=== PATIENT | female | born 1945 | race Caucasian/White ===

== ENCOUNTER 2016-12-07 09:05 | Outpatient (CLI) ==
--- NOTE | 2016-12-07 10:16 | DI ---
EXAM: Three views of the left wrist. History: Left wrist pain. Findings: No acute fracture or dislocation. Mild narrowing of the first carpal metacarpal joint an d scaphoid trapezium articulation. No abnormal calcifications or radiopaque foreign bodies. Mild o steopenia. Impression: 1. No acute osseous abnormality. 2. Mild arthritis. 3. Osteopenia.
--- NOTE | 2016-12-07 10:17 | DI ---
EXAM: Two views of the left hip. History: Left hip pain and trauma. Findings: No acute fracture or dislocation. Osteopenia. Left hip joint space is preserved. Impression: No acute osseous abnormality.
--- NOTE | 2016-12-07 10:18 | DI ---
Exam: Three x-rays of the right wrist. Comparison: Left wrist x-rays performed on the same day. Reason for exam: Bilateral wrist pain. FINDINGS: No acute fracture or malalignment. There is narrowing of the scaphoid triquetral joint s pace with sclerosis. No unexplained calcific soft tissue densities or radiopaque retained foreign b odies. The scaphoid appears intact. Impression: 1. No acute fracture or dislocation in the right wrist. 2. Moderate degenerative disease with sclerotic change and narrowing of the scaphoid trapezial join t space.
--- NOTE | 2016-12-07 10:18 | DI ---
EXAM: Five views of the lumbar spine. History: Lower back pain and trauma. Comparison: Lumbar spine radiograph 11/22/2014 Findings: Osteopenia. Cholecystectomy clips. Scattered colonic stool. No acute fracture or sublu xation. Mild to moderate disc space narrowing at L1-L2 and L5-S1. Mild disc space narrowing seen e lsewhere. Small anterior osteophytes. Mild to moderate facet hypertrophy within the lower lumbar s pine. Impression: No acute osseous abnormality. Degenerative changes. Osteopenia.
== END 2016-12-07 09:06 | disposition home or self-care (01) ==
LOC: RAD 09:05
PROVIDERS: ATTEND Family Medicine
DX: M54.5 Low back pain (principal); M25.552 Pain in left hip; M25.531 Pain in right wrist; M25.532 Pain in left wrist; W19.XXXA Unspecified fall, initial encounter

== ENCOUNTER 2017-08-08 10:31 | Outpatient (CLI) ==
--- NOTE | 2017-08-08 12:24 | DI ---
Exam: Cervical spine five views History: Neck pain FINDINGS: Cervical spine shows degenerative anterior listhesis of C4 measuring about 2 mm. Normal a lignment otherwise. Vertebral body height is maintained. Disc space narrowing at C5-6. Facet arthr opathy changes bilaterally generally mild. No suspicious bony lesions are seen. Normal prevertebral soft tissues. Impression: 1. Focal bone on bone disc space narrowing at C5-6. Generally mild endplate and facet degenerative changes otherwise.
== END 2017-08-08 10:32 | disposition home or self-care (01) ==
LOC: RAD 10:31
PROVIDERS: ATTEND Family Medicine
DX: M54.2 Cervicalgia (principal)

== ENCOUNTER 2018-09-16 09:06 | Emergency (ER) ==
[2018-09-16 09:16] VITALS: BP 163/69; TEMP 97.8; BMI 27.8
--- NOTE | 2018-09-16 09:46 | CT ---
Exam: CT of the abdomen and pelvis without contrast History: Lower abdomen pain FINDINGS: The lung bases are clear. No significant liver abnormality. The adrenals, pancreas and s pleen are unremarkable. The stomach and hiatus are unremarkable.Prior cholecystectomy. The appendix is not seen. Mild prominence of the right ureter with periureteral stranding. Punctate right dista l ureteral calculus versus adjacent vascular calcification. Normal left kidney and collecting system . Bowel loops demonstrate normal caliber. No inflamatory change seen in the mesentery or retroperit oneum. Atherosclerotic calcification of the aorta without aneurysm. Normal urinary bladder. Prior hysterectomy. Prominent right distal ureter with questionable distal ureteral calculus. Normal pelvic bowel loops. No acute findings of the skeleton. Impression: 1. Mild right hydroureter with periureteral stranding. Questionable, sub 2 mm, right distal uretera l calculus versus adjacent vascular calcification. 2. No acute findings of the abdomen or pelvis otherwise.
[2018-09-16] MEDS ORDERED: LIDOCAINE HCL 1% SDV IM STA (10:00)
[2018-09-16] MEDS ORDERED: ROCEPHIN IM STA (10:00)
--- NOTE | 2018-09-16 10:05 | ED.PDOC ---
General ED Provider: Dr. MIGUEL ANGEL MARTINEZ Chief Complaint: Urinary Problem Stated Complaint: urinary sign and symptoms onset last night lower abdominal pain without N/V/D . Time Seen by Physician: 09:11 (SEEN WITH GUILHERME AT ALL TIMES ) Mode of Arrival: Walk-In Information Source: Patient Exam Limitations: No limitations Primary Care Provider: LUCILLE SCHMITT Nursing and Triage Documentation Reviewed and Agree: Yes Does patient meet sepsis criteria?: No System Inflammatory Response Syndrome: Not Applicable Sepsis Protocol: For patient's 13 years and over: Temp is 96.8 and below OR 101 and greater Pulse >90 BPM Resp >20/minute Acutely Altered Mental Status Are patient's symptoms suggestive of a new infection, such as: -Pneumonia -Skin, Soft Tissue -Endocarditis -UTI -Bone, Joint Infection -Implantable Device -Acute Abdominal Infection -Wound Infection -Meningitis -Blood Stream Catheter Infection -Unknown Complaint Exam - UTI Female Complaint/Exam Patient Complains of: Reports: Painful urination (MAINLY PRESSURE NO PAIN NEGATIVE BLOD) Onset/Duration: LAST NIGHT Symptoms Are: Still present Timing: Constant Initial Severity: Moderate Current Severity: Mild Location of Pain: Reports: Right (LOWER ), Left, Suprapubic Associated Signs and Symptoms: Denies: Fever, Chills, Flank pain, Dyspareunia, Vaginal discharge Patient Rh Status: Unknown Related History: Reports: Similar episode (UTI NO HISTORY OF RENAL FAILURE OR STONES ) Related Surgical History: Reports: None CVA Tenderness: No Suprapubic Tenderness: Yes Differential Diagnoses: Ureteral Calculus, Other (UTI) Review of Systems - Review Of Systems Constitutional: Reports: No symptoms Eyes: Reports: No symptoms Ears, Nose, Mouth, Throat: Reports: No symptoms Respiratory: Reports: No symptoms Cardiac: Reports: No symptoms GI: Reports: Abdominal pain : Reports: Dysuria Musculoskeletal: Reports: No symptoms Skin: Reports: No symptoms Neurological: Reports: No symptoms Endocrine: Reports: No symptoms Hematologic/Lymphatic: Reports: No symptoms All Other Systems: Reviewed and Negative Past Medical History - Past Medical History Previously Healthy: Yes Endocrine: Reports: Hypothyroid Cardiovascular: Reports: Hypertension Respiratory: Reports: None Hematological: Reports: None Gastrointestinal: Reports: None Genitourinary: Reports: None Neuro/Psych: Reports: None Musculoskeletal: Reports: None Cancer: Reports: None Last Menstrual Period: N/A - Surgical History General Surgical History: Reports: None - Family History Family History: Reports: None - Social History Smoking Status: Never smoker Hx Substance Use: No Alcohol Screening: None - Immunizations Tetanus Shot up to Date: No Physical Exam - Physical Exam Appearance: Well-appearing, No pain distress, Well-nourished Eyes: JENN, EOMI, Conjunctiva clear ENT: Ears normal, Nose normal, Oropharynx normal Respiratory: Airway patent, Breath sounds clear, Breath sounds equal, Respirations nonlabored Cardiovascular: RRR, Pulses normal, No rub, No murmur GI/: Soft, Nontender, No masses, Bowel sounds normal, No Organomegaly Musculoskeletal: Normal strength, ROM intact, No edema, No calf tenderness Skin: Warm, Dry, Normal color Neurological: Sensation intact, Motor intact, Reflexes intact, Cranial nerves intact, Alert, Oriented Psychiatric: Affect appropriate, Mood appropriate Interpretation - Radiology Interpretation Radiology Interpretation By: Radiologist Radiology Results: Positive (PREURETHRAL STRANDING) Critical Care Note - Critical Care Note Total Time (mins): 0 Course - Course Hematology/Chemistry: 09/16/18 09:35 09/16/18 09:35 Orders, Labs, Meds: Lab Review 09/16/18 09/16/18 09/16/18 09:32 09:35 09:35 WBC 8.47 RBC 3.84 L Hgb 11.6 L Hct 35.7 L MCV 93.0 MCH 30.2 MCHC 32.5 RDW Coeff of Bucky 14.0 Plt Count 183 Immature Gran % (Auto) 0.4 Neut % (Auto) 76.7 Lymph % (Auto) 14.6 [place] % (Auto) 7.1 Eos % (Auto) 0.7 Baso % (Auto) 0.5 Immature Gran # (Auto) 0.0 Neut # (Auto) 6.5 Lymph # (Auto) 1.2 [place] # (Auto) 0.6 Eos # (Auto) 0.1 Baso # (Auto) 0.0 Sodium 136.6 Potassium 4.15 Chloride 101.2 Carbon Dioxide 27.6 Anion Gap 11.95 BUN 19.0 H Creatinine 1.01 Estimated GFR (MDRD) 53.00 BUN/Creatinine Ratio 18.81 Glucose 108.5 H Calcium 9.20 Total Bilirubin 0.63 AST 27.0 ALT 20.6 Alkaline Phosphatase 81.7 Total Protein 7.24 Albumin 4.42 Globulin 2.82 Albumin/Globulin Ratio 1.56 Urine Color Light Urine Clarity Cloudy Urine pH 6.0 Ur Specific [place] 1.015 Urine Protein 3+ Urine Glucose (UA) Negative Urine Ketones Negative Urine Blood 2+ Urine Nitrite Negative Urine Bilirubin Negative Urine Urobilinogen 0.2 Ur Leukocyte Esterase 1+ Urine Microscopic RBC 5-10 Urine Microscopic WBC Tntc Ur Squamous Epith Cells 0-2 Urine Bacteria 1+ Orders Category Date Time Status CBC W/ AUTO DIFF Stat LAB 09/16/18 09:13 Ordered COMPREHENSIVE METABOLIC PANEL Stat LAB 09/16/18 09:13 Ordered URINALYSIS C & S IF INDICATED Stat LAB 09/16/18 09:13 Uncollected URINE CULTURE Stat LAB 09/16/18 09:32 Received Ceftriaxone Sodium [Rocephin] MEDS 09/16/18 10:00 Stat 1 gm IM ONCE STA Lidocaine HCl/Pf [Lidocaine HCl 1% Sdv] MEDS 09/16/18 10:00 Stat 2.1 ml IM ONCE STA CT ABDOMEN/PELVIS WO CONTRAST Stat RADS 09/16/18 09:13 Ordered Medications Generic Name Dose Route Start Last Admin Trade Name Jossie PRN Reason Stop Dose Admin Ceftriaxone Sodium 1 gm 09/16/18 10:00 Rocephin IM 09/16/18 10:01 ONCE STA Lidocaine HCl 2.1 ml 09/16/18 10:00 Lidocaine Hcl 1% Sdv IM 09/16/18 10:01 ONCE STA Vital Signs: Temp Pulse Resp BP Pulse Ox 09/16/18 09:06 97.8 F 100 H 18 163/69 H 97 Departure - Departure Time of Disposition: 10:09 Disposition: HOME SELF-CARE Discharge Problem: Urinary tract infectious disease, Urinary symptoms Instructions: Urinary Tract Infection in Women (ED) Condition: Good Pt referred to PMD for follow-up: Yes IPMP verified?: No Additional Instructions: Please call your Family Physician as soon as possible to schedule a follow-up appointment. YOU HAVE A URINARY TRACT INFECTION, IF YOU HAVE FEVER GETTING SICKER, VOMITING CANT URINATE BLOODY URINE YOU MUST GET IN TOUCH WITH YOU M.D. OR RETURN TO THE E.R. YOU HAVE BEEN GIVEN A STRONG ANTIBIOTIC INJECTION START YOUR MEDS IN AM . FOR NEXT 4 DAYS AND SEE YOUR MD REGARDLESS DURING THE NEXT WEEK Allergies/Adverse Reactions: Allergies No Known Allergies Allergy (Unverified 09/16/18 09:16) Home Medications: Ambulatory Orders Losartan/Hydrochlorothiazide [Losartan-Hctz 100-25 Mg Tab] 0.5 tab PO DAILY Levothyroxine Sodium [Synthroid] 50 mcg PO DAILY 10/13/15 Disposition Discussed With: Patient
== END 2018-09-16 10:24 | disposition home or self-care (01) ==
LOC: ED 09:06
DX: N39.0 Urinary tract infection, site not specified (principal); N20.0 Calculus of kidney; E03.9 Hypothyroidism, unspecified; I10 Essential (primary) hypertension; D64.9 Anemia, unspecified
CPT/HCPCS: 36415; 80053; 81001; 85025; 87086; 87186; 96372; 99283

== ENCOUNTER 2023-07-09 04:10 | Inpatient (IN) ==
--- NOTE | 2023-07-09 05:35 | ED.PDOC ---
General <SHIVA DSOUZA, DO - Last Filed: 07/18/23 17:57> ED Provider: Dr. SHIVA DSOUZA DO Chief Complaint: Hip Pain/Injury Stated Complaint: Patient is a 78 yo F here for R hip pain after fall this am in the bathroom Patient arrives afebrile and vitally stable by ems She was able to ambulate after fall She has chronic R hip pain and follows with orthopedist Dr. Chacon Patient reports she tripped, hit her head, she denies LOC or being on anticoagulant medicine Patient stable She declines analgesics at this time Time Seen by Provider: 07/09/23 04:40 Information Source: Patient Primary Care Provider: LUCILLE SCHMITT What is Opioid Naive?: *Opioid Naive implies the patient is not already taking opioids or not chronically receiving opioids on a daily basis. *PRN dosing is not "usually" associated with tolerance. *Patients are at higher risk of over-sedation and aspiration. What is Opioid Tolerant?: *Opioid Tolerance implies less than the expected response to an opioid. *Acquired tolerance is defined by the patient taking 60mg of oral morphine daily (or equianalgesic dose of another opioid) for 1 week or more. *Often associated with chronic pain. *May take more than usual dose to achieve desired pain control. <WM GARCIA, - Last Filed: 07/09/23 08:15> Nursing and Triage Documentation Reviewed and Agree: Yes Review of Systems <SHIVA DSOUZA, - Last Filed: 07/18/23 17:57> Review Of Systems Constitutional: Denies Chills or Fever Eyes: Denies Blindness or Drainage Ears, Nose, Mouth, Throat: Denies Ear pain or Nose pain Respiratory: Denies Cough or Wheezing Cardiac: Denies Chest pain or Palpitations GI: Denies Abdominal pain or Constipated : Denies Burning or Dysuria Musculoskeletal: Reports Joint pain (R hip pain); Denies Back pain Skin: Reports No symptoms Neurological: Reports No symptoms Endocrine: Reports No symptoms Hematologic/Lymphatic: Reports No symptoms All Other Systems: Reviewed and Negative PFS <SHIVA DSOUZA DO - Last Filed: 07/18/23 17:57> Medical History (Updated 07/13/23 @ 13:48 by ARNOL OLIVEROS RN) Polio Had as a child. Right foot/leg affected. A80.9 - Acute poliomyelitis, unspecified (ICD-10) Hypertension for years I10 - Essential (primary) hypertension (ICD-10) Hypothyroidism about a year or two E03.9 - Hypothyroidism, unspecified (ICD-10) Family History Other No known health problems Social History Smoking and tobacco status: Never smoker Surgical History History of cataract surgery Z98.49 - Cataract extraction status, unspecified eye (ICD-10) Status post tonsillectomy 1947 Z90.89 - Acquired absence of other organs (ICD-10) Status post hysterectomy 2010 Z90.710 - Acquired absence of both cervix and uterus (ICD-10) Status post appendectomy 1961 Z90.49 - Acquired absence of other specified parts of digestive tract (ICD- 10) Female Reproductive History Menstrual Hx Hysterectomy: Yes Hx Tubal Ligation: No Physical Exam <SHIVA DSOUZA DO - Last Filed: 07/18/23 17:57> Physical Exam Appearance: Reports Well-appearing, Well-nourished and Obese Ill-appearing: Not Applicable Pain Distress: Mild Eyes: Reports JENN and EOMI ENT: Reports Ears normal and Nose normal Neck: Supple Respiratory: Reports Airway patent and Breath sounds clear Cardiovascular: Reports RRR and Pulses normal GI/: Reports Soft and Nontender Musculoskeletal: Reports Normal strength, ROM intact and Other (R hip ttp, no skin changes, arom prom intact, no gross shortening or rotation, NVI BL LE) Skin: Reports Warm and Dry Neurological: Reports Sensation intact and Motor intact Psychiatric: Reports Affect appropriate and Mood appropriate Course <SHIVA DSOUZA DO - Last Filed: 07/18/23 17:57> Course 07/13/23 05:26 07/13/23 05:26 Orders, Labs, Meds: Lab Review 07/09/23 07/10/23 07/11/23 08:16 05:24 05:13 WBC 8.59 8.56 RBC 3.69 L 3.53 L Hgb 10.9 L 10.4 L Hct 34.9 L 32.6 L MCV 94.6 92.4 MCH 29.5 29.5 MCHC 31.2 L 31.9 RDW Coeff of Bucky 15.0 H 14.5 Plt Count 131 L 123 L Immature Gran % (Auto) 0.6 0.6 Neut % (Auto) 78.1 H 81.0 H Lymph % (Auto) 12.[address] [place] % (Auto) 6.5 8.1 Eos % (Auto) 2.1 1.3 Baso % (Auto) 0.5 0.5 Neut # (Auto) 6.7 6.9 Lymph # (Auto) 1.[address] # (Auto) 0.6 0.7 Eos # (Auto) 0.2 0.1 Baso # (Auto) 0.0 0.0 Immature Gran # (Auto) 0.1 0.1 Sodium 130.2 L 130.8 L Potassium 3.63 4.02 Chloride 97.2 L 98.4 Carbon Dioxide 27.7 28.5 Anion Gap 8.93 7.92 BUN 20.3 H 17.5 H Creatinine 0.92 0.82 Estimated GFR (MDRD) 59.00 67.00 BUN/Creatinine Ratio 22.06 21.34 Glucose 103.2 115.8 H Calcium 8.22 L 8.17 L Total Bilirubin 1.13 0.71 AST 29.8 23.9 ALT 23.8 18.3 Alkaline Phosphatase 69.6 69.9 Total Protein 6.42 6.12 L Albumin 3.67 3.47 L Globulin 2.75 2.65 Albumin/Globulin Ratio 1.33 1.30 SARS CoV-2 RNA Rapid AMADO Negative Orders Category Date Time Status ADMIT OBSERVATION [PLACE PATIENT OBSERVATION] .TO ADMISSION 07/09/23 08:14 Completed MEDSURG (MONITORED BED) ADMIT PATIENT INPATIENT .TO MEDSURG (MONITORED BED) ADMISSION 07/10/23 09:53 Completed ACTIVITY .Up With Assistance CARE 07/09/23 08:31 Completed INTAKE & OUTPUT Q8HR CARE 07/09/23 08:31 Completed TELEMETRY MONITORING TELE CARE 07/09/23 08:14 Completed TELEMETRY MONITORING TELE CARE 07/10/23 09:53 Completed VITAL SIGNS Q4HR CARE 07/09/23 08:31 Completed CARDIAC DIET DIETARY 07/09/23 Breakfast Completed CBC W/ AUTO DIFF DAILY@0600 LAB 07/10/23 05:24 Completed CBC W/ AUTO DIFF DAILY@0600 LAB 07/11/23 05:13 Completed COMPREHENSIVE METABOLIC PANEL DAILY@0600 LAB 07/10/23 05:24 Completed COMPREHENSIVE METABOLIC PANEL DAILY@0600 LAB 07/11/23 05:13 Completed COVID [SARS COV-2 RNA RAPID AMADO] Stat LAB 07/09/23 08:16 Completed Acetaminophen [Tylenol] Meds 07/09/23 08:31 Discontinued 650 mg PO Q4H PRN Enoxaparin Sodium [Lovenox] Meds 07/09/23 09:00 Discontinued 40 mg SUBCUT DAILY Fentanyl Citrate/Pf [Sublimaze] Meds 07/09/23 07:54 Discontinued 50 mcg IVP ONCE ONE Furosemide [Lasix Tab] Meds 07/09/23 13:00 Discontinued 20 mg PO QDAC2 Hydrocodone Bit/Acetaminophen [[place] 5-325] Meds 07/09/23 05:59 Discontinued 1 tab PO ONCE ONE Hydrocodone Bit/Acetaminophen [[place] 7.5-325] Meds 07/09/23 08:31 Discontinued 1 tab PO Q6HR PRN Levothyroxine Sodium [Synthroid] Meds 07/09/23 13:00 Discontinued 50 mcg PO DAILY@0630 Morphine Sulfate [Morphine 2 mg/ml Syringe] Meds 07/09/23 08:31 Discontinued 2 mg IVP Q6H PRN Valsartan [Diovan] Meds 07/09/23 13:00 Discontinued 160 mg PO DAILY RESUSCITATION STATUS Routine OTHERS 07/09/23 09:[address] ABDOMEN/PELVIS WO CONTRAST Stat RADS 07/09/23 04:[address] HEAD W/O CONTRAST Stat RADS 07/09/23 04:52 Completed OT CONSULTATION Routine THERAPIES 07/09/23 16:25 Completed OT CONSULTATION Routine THERAPIES 07/09/23 16:25 Completed OT EVALUATION Routine THERAPIES 07/09/23 08:31 Completed PT CONSULT Routine THERAPIES 07/09/23 16:21 Completed PT CONSULT Routine THERAPIES 07/09/23 16:22 Completed PT INPATIENT EVALUATION Routine THERAPIES 07/09/23 16:22 Completed Medications Discontinued Medications Generic Name Dose Route Start Last Admin Trade Name Freq PRN Reason Stop Dose Admin Acetaminophen 650 mg 07/09/23 08:31 07/11/23 10:29 Acetaminophen 325 Mg Tablet PO 650 mg Q4H PRN Administration Mild Pain Hydrocodone Bitart/Acetaminophen 1 tab 07/09/23 05:59 07/09/23 06:07 Hydrocodone Bit/Acetaminophen 5/325 Mg Tablet PO 07/09/23 06:00 1 tab ONCE ONE Administration Hydrocodone Bitart/Acetaminophen 1 tab 07/09/23 08:31 07/12/23 20:12 Hydrocodone Bit/Acetaminophen 7.5/325 Mg Tablet PO 1 tab Q6HR PRN Administration MODERATE PAIN Enoxaparin Sodium 40 mg 07/09/23 09:00 07/13/23 09:20 Enoxaparin Sodium 40 Mg/0.4 Ml Syr SUBCUT 40 mg DAILY RAJANI Administration Fentanyl Citrate 50 mcg 07/09/23 07:54 07/09/23 09:12 Fentanyl 50 Mcg/Ml Sdv IVP 07/09/23 07:55 Not Given ONCE ONE Furosemide 20 mg 07/09/23 13:00 07/13/23 05:29 Furosemide 20 Mg Tablet PO 20 mg QDAC2 RAJANI Administration Sodium Chloride 1,000 mls @ 100 mls/hr 07/11/23 09:30 07/12/23 06:03 Sodium Chloride IV 100 mls/hr .Q10H RJAANI Administration Levothyroxine Sodium 50 mcg 07/09/23 13:00 07/13/23 05:29 Levothyroxine Sodium 50 Mcg Tablet PO 50 mcg DAILY@0630 RAJANI Administration Morphine Sulfate 2 mg 07/09/23 08:31 07/09/23 18:06 Morphine Sulfate 2 Mg/Ml Syringe IVP 2 mg Q6H PRN Administration MODERATE PAIN Sodium Chloride 1 gm 07/11/23 15:00 07/13/23 09:19 Sodium Chloride 1 Gm Tablet PO 1 gm TID RAJANI Administration Valsartan 160 mg 07/09/23 13:00 07/13/23 09:20 Valsartan 160 Mg Tablet PO 160 mg DAILY RAJANI Administration Vital Signs: Temp Pulse Resp BP Pulse Ox O2 Del Method 07/11/23 05:18 99 F 105 H 15 153/72 H 91 L Room Air 07/11/23 02:00 99.7 F 112 H 16 154/79 H 91 L Room Air 07/11/23 01:00 Room Air 07/11/23 00:00 Room Air 07/10/23 23:00 Room Air 07/10/23 22:00 Room Air 07/10/23 21:07 98.8 F 87 16 144/64 H 94 L Room Air 07/10/23 21:00 Room Air 07/10/23 20:00 Room Air 07/10/23 20:00 Room Air 07/10/23 19:00 Room Air 07/10/23 17:20 98.7 F 92 18 150/71 H 93 L Room Air 07/10/23 17:12 Room Air 07/10/23 16:43 Room Air 07/10/23 16:00 Room Air 07/10/23 14:58 Room Air 07/10/23 13:55 Room Air 07/10/23 13:22 98.2 F 85 18 115/58 L 95 Room Air 07/10/23 12:50 Room Air 07/10/23 12:00 Room Air 07/10/23 11:00 Room Air 07/10/23 09:51 Room Air 07/10/23 09:50 97.6 F 84 18 112/53 L 90 L Room Air 07/10/23 08:32 Room Air 07/10/23 08:00 Room Air 07/10/23 07:25 Room Air 07/10/23 07:00 Room Air 07/10/23 07:00 Room Air 07/10/23 06:00 Room Air 07/10/23 05:21 99.7 F 88 18 137/61 90 L Room Air 07/10/23 05:00 Room Air 07/10/23 04:00 Room Air 07/10/23 03:00 Room Air 07/10/23 02:00 Room Air 07/10/23 01:00 Room Air 07/10/23 00:00 Room Air 07/09/23 23:00 Room Air 07/09/23 22:00 Room Air 07/09/23 21:28 98.5 F 89 18 127/55 L 95 Room Air 07/09/23 21:00 Room Air 07/09/23 20:00 Room Air 07/09/23 19:59 Room Air 07/09/23 19:00 Room Air 07/09/23 18:00 100 F 91 14 129/66 95 Room Air 07/09/23 17:44 Room Air 07/09/23 17:00 Room Air 07/09/23 16:00 Room Air 07/09/23 15:00 Room Air 07/09/23 14:00 99.6 F 94 17 157/67 H 95 Room Air 07/09/23 14:00 Room Air 07/09/23 13:00 Room Air 07/09/23 12:00 Room Air 07/09/23 11:00 Room Air 07/09/23 10:00 Room Air 07/09/23 09:18 Room Air 07/09/23 09:18 97.7 F 89 16 96 Room Air 07/09/23 08:03 88 16 122/48 L 95 07/09/23 04:11 98.2 F 84 18 159/66 H 94 L <WM GARCIA, DO - Last Filed: 07/09/23 08:15> Course Orders, Labs, Meds: Lab Review 07/09/23 07/10/23 07/11/23 08:16 05:24 05:13 WBC 8.59 8.56 RBC 3.69 L 3.53 L Hgb 10.9 L 10.4 L Hct 34.9 L 32.6 L MCV 94.6 92.4 MCH 29.5 29.5 MCHC 31.2 L 31.9 RDW Coeff of Bucky 15.0 H 14.5 Plt Count 131 L 123 L Immature Gran % (Auto) 0.6 0.6 Neut % (Auto) 78.1 H 81.0 H Lymph % (Auto) 12.[address] [place] % (Auto) 6.5 8.1 Eos % (Auto) 2.1 1.3 Baso % (Auto) 0.5 0.5 Neut # (Auto) 6.7 6.9 Lymph # (Auto) 1.[address] # (Auto) 0.6 0.7 Eos # (Auto) 0.2 0.1 Baso # (Auto) 0.0 0.0 Immature Gran # (Auto) 0.1 0.1 Sodium 130.2 L 130.8 L Potassium 3.63 4.02 Chloride 97.2 L 98.4 Carbon Dioxide 27.7 28.5 Anion Gap 8.93 7.92 BUN 20.3 H 17.5 H Creatinine 0.92 0.82 Estimated GFR (MDRD) 59.00 67.00 BUN/Creatinine Ratio 22.06 21.34 Glucose 103.2 115.8 H Calcium 8.22 L 8.17 L Total Bilirubin 1.13 0.71 AST 29.8 23.9 ALT 23.8 18.3 Alkaline Phosphatase 69.6 69.9 Total Protein 6.42 6.12 L Albumin 3.67 3.47 L Globulin 2.75 2.65 Albumin/Globulin Ratio 1.33 1.30 SARS CoV-2 RNA Rapid AMADO Negative Orders Category Date Time Status ADMIT OBSERVATION [PLACE PATIENT OBSERVATION] .TO ADMISSION 07/09/23 08:14 Completed MEDSURG (MONITORED BED) ADMIT PATIENT INPATIENT .TO MEDSURG (MONITORED BED) ADMISSION 07/10/23 09:53 Completed ACTIVITY .Up With Assistance CARE 07/09/23 08:31 Completed INTAKE & OUTPUT Q8HR CARE 07/09/23 08:31 Completed TELEMETRY MONITORING TELE CARE 07/09/23 08:14 Completed TELEMETRY MONITORING TELE CARE 07/10/23 09:53 Completed VITAL SIGNS Q4HR CARE 07/09/23 08:31 Completed CARDIAC DIET DIETARY 07/09/23 Breakfast Completed CBC W/ AUTO DIFF DAILY@0600 LAB 07/10/23 05:24 Completed CBC W/ AUTO DIFF DAILY@0600 LAB 07/11/23 05:13 Completed COMPREHENSIVE METABOLIC PANEL DAILY@0600 LAB 07/10/23 05:24 Completed COMPREHENSIVE METABOLIC PANEL DAILY@0600 LAB 07/11/23 05:13 Completed COVID [SARS COV-2 RNA RAPID AMADO] Stat LAB 07/09/23 08:16 Completed Acetaminophen [Tylenol] Meds 07/09/23 08:31 Discontinued 650 mg PO Q4H PRN Enoxaparin Sodium [Lovenox] Meds 07/09/23 09:00 Discontinued 40 mg SUBCUT DAILY Fentanyl Citrate/Pf [Sublimaze] Meds 07/09/23 07:54 Discontinued 50 mcg IVP ONCE ONE Furosemide [Lasix Tab] Meds 07/09/23 13:00 Discontinued 20 mg PO QDAC2 Hydrocodone Bit/Acetaminophen [[place] 5-325] Meds 07/09/23 05:59 Discontinued 1 tab PO ONCE ONE Hydrocodone Bit/Acetaminophen [[place] 7.5-325] Meds 07/09/23 08:31 Discontinued 1 tab PO Q6HR PRN Levothyroxine Sodium [Synthroid] Meds 07/09/23 13:00 Discontinued 50 mcg PO DAILY@0630 Morphine Sulfate [Morphine 2 mg/ml Syringe] Meds 07/09/23 08:31 Discontinued 2 mg IVP Q6H PRN Valsartan [Diovan] Meds 07/09/23 13:00 Discontinued 160 mg PO DAILY RESUSCITATION STATUS Routine OTHERS 07/09/23 09:[address] ABDOMEN/PELVIS WO CONTRAST Stat RADS 07/09/23 04:[address] HEAD W/O CONTRAST Stat RADS 07/09/23 04:52 Completed OT CONSULTATION Routine THERAPIES 07/09/23 16:25 Completed OT CONSULTATION Routine THERAPIES 07/09/23 16:25 Completed OT EVALUATION Routine THERAPIES 07/09/23 08:31 Completed PT CONSULT Routine THERAPIES 07/09/23 16:21 Completed PT CONSULT Routine THERAPIES 07/09/23 16:22 Completed PT INPATIENT EVALUATION Routine THERAPIES 07/09/23 16:22 Completed Medications Discontinued Medications Generic Name Dose Route Start Last Admin Trade Name Saloq PRN Reason Stop Dose Admin Acetaminophen 650 mg 07/09/23 08:31 07/11/23 10:29 Acetaminophen 325 Mg Tablet PO 650 mg Q4H PRN Administration Mild Pain Hydrocodone Bitart/Acetaminophen 1 tab 07/09/23 05:59 07/09/23 06:07 Hydrocodone Bit/Acetaminophen 5/325 Mg Tablet PO 07/09/23 06:00 1 tab ONCE ONE Administration Hydrocodone Bitart/Acetaminophen 1 tab 07/09/23 08:31 07/12/23 20:12 Hydrocodone Bit/Acetaminophen 7.5/325 Mg Tablet PO 1 tab Q6HR PRN Administration MODERATE PAIN Enoxaparin Sodium 40 mg 07/09/23 09:00 07/13/23 09:20 Enoxaparin Sodium 40 Mg/0.4 Ml Syr SUBCUT 40 mg DAILY RAJANI Administration Fentanyl Citrate 50 mcg 07/09/23 07:54 07/09/23 09:12 Fentanyl 50 Mcg/Ml Sdv IVP 07/09/23 07:55 Not Given ONCE ONE Furosemide 20 mg 07/09/23 13:00 07/13/23 05:29 Furosemide 20 Mg Tablet PO 20 mg QDAC2 RAJANI Administration Sodium Chloride 1,000 mls @ 100 mls/hr 07/11/23 09:30 07/12/23 06:03 Sodium Chloride IV 100 mls/hr .Q10H RAJANI Administration Levothyroxine Sodium 50 mcg 07/09/23 13:00 07/13/23 05:29 Levothyroxine Sodium 50 Mcg Tablet PO 50 mcg DAILY@0630 RAJANI Administration Morphine Sulfate 2 mg 07/09/23 08:31 07/09/23 18:06 Morphine Sulfate 2 Mg/Ml Syringe IVP 2 mg Q6H PRN Administration MODERATE PAIN Sodium Chloride 1 gm 07/11/23 15:00 07/13/23 09:19 Sodium Chloride 1 Gm Tablet PO 1 gm TID RAJANI Administration Valsartan 160 mg 07/09/23 13:00 07/13/23 09:20 Valsartan 160 Mg Tablet PO 160 mg DAILY RAJANI Administration Vital Signs: Temp Pulse Resp BP Pulse Ox O2 Del Method 07/11/23 05:18 99 F 105 H 15 153/72 H 91 L Room Air 07/11/23 02:00 99.7 F 112 H 16 154/79 H 91 L Room Air 07/11/23 01:00 Room Air 07/11/23 00:00 Room Air 07/10/23 23:00 Room Air 07/10/23 22:00 Room Air 07/10/23 21:07 98.8 F 87 16 144/64 H 94 L Room Air 07/10/23 21:00 Room Air 07/10/23 20:00 Room Air 07/10/23 20:00 Room Air 07/10/23 19:00 Room Air 07/10/23 17:20 98.7 F 92 18 150/71 H 93 L Room Air 07/10/23 17:12 Room Air 07/10/23 16:43 Room Air 07/10/23 16:00 Room Air 07/10/23 14:58 Room Air 07/10/23 13:55 Room Air 07/10/23 13:22 98.2 F 85 18 115/58 L 95 Room Air 07/10/23 12:50 Room Air 07/10/23 12:00 Room Air 07/10/23 11:00 Room Air 07/10/23 09:51 Room Air 07/10/23 09:50 97.6 F 84 18 112/53 L 90 L Room Air 07/10/23 08:32 Room Air 07/10/23 08:00 Room Air 07/10/23 07:25 Room Air 07/10/23 07:00 Room Air 07/10/23 07:00 Room Air 07/10/23 06:00 Room Air 07/10/23 05:21 99.7 F 88 18 137/61 90 L Room Air 07/10/23 05:00 Room Air 07/10/23 04:00 Room Air 07/10/23 03:00 Room Air 07/10/23 02:00 Room Air 07/10/23 01:00 Room Air 07/10/23 00:00 Room Air 07/09/23 23:00 Room Air 07/09/23 22:00 Room Air 07/09/23 21:28 98.5 F 89 18 127/55 L 95 Room Air 07/09/23 21:00 Room Air 07/09/23 20:00 Room Air 07/09/23 19:59 Room Air 07/09/23 19:00 Room Air 07/09/23 18:00 100 F 91 14 129/66 95 Room Air 07/09/23 17:44 Room Air 07/09/23 17:00 Room Air 07/09/23 16:00 Room Air 07/09/23 15:00 Room Air 07/09/23 14:00 99.6 F 94 17 157/67 H 95 Room Air 07/09/23 14:00 Room Air 07/09/23 13:00 Room Air 07/09/23 12:00 Room Air 07/09/23 11:00 Room Air 07/09/23 10:00 Room Air 07/09/23 09:18 Room Air 07/09/23 09:18 97.7 F 89 16 96 Room Air 07/09/23 08:03 88 16 122/48 L 95 07/09/23 04:11 98.2 F 84 18 159/66 H 94 L Discharge Plan Discharge Patient Disposition: PLACED OBSERVATION Discharge Problem: Pain, Acute constipation, Intractable pain Closed fracture of pubic ramus Qualifiers: Encounter type: initial encounter Laterality: right Qualified Code(s): S32.591A - Other specified fracture of right pubis, initial encounter for closed fracture Fall Qualifiers: Encounter type: initial encounter Qualified Code(s): W19.XXXA - Unspecified fall, initial encounter Did you review [place] [employer] for ALL controlled substances?: Yes ED Provider: WM GARCIA Condition: Good <SHIVA DSOUZA DO - Last Filed: 07/18/23 17:57> Physician Progress Note: []
--- NOTE | 2023-07-09 05:36 | CT ---
EXAM: CT HEAD WITHOUT CONTRAST. HISTORY: Fall. PROCEDURE: Contiguous axial CT images of the head without contrast with coronal and sagittal reforma ts. FINDINGS: Comparison made with CT head of 07/30/2021. There is diffuse cerebral atrophy. The ventri cles and basal cisterns are normal in size and configuration. No evidence of mass or midline shift. No intracranial hemorrhage or evidence of large vessel infarct. No extra-axial fluid collection. T here are minimal chronic small vessel ischemic changes in the white matter. There is a mucous retent ion cyst in the right maxillary sinus. The mastoid air cells are normal in appearance. No skull fra cture. Impression: No intracranial hemorrhage or skull fracture. Chronic small vessel ischemic changes. Diffuse cerebral atrophy. Right maxillary sinusitis. All CT scans are performed using dose optimization techniques as appropriate to the performed exam an d include at least one of the following: Automated exposure control, adjustment of the mA and/or kV according t o size, and the use of iterative reconstruction technique.
--- NOTE | 2023-07-09 05:49 | CT ---
EXAM: CT OF THE ABDOMEN AND PELVIS WITHOUT CONTRAST. HISTORY: Fall. Right hip and pubic tenderness to palpation. PROCEDURE: Contiguous axial CT images of the abdomen and pelvis without contrast with coronal and sa gittal reformats. All CT scans are performed using dose optimization techniques as appropriate to a performed exam including the following: Automated exposure control, Adjustment of the mA and/or kV ac cording to patient size, Use of iterative reconstruction technique. FINDINGS: The liver is normal in appearance. The gallbladder is surgically absent. The pancreas, sp shade, adrenal glands and kidneys are normal in appearance. The abdominal aorta is within normal limi ts in size. There is fecal stasis in the colon. There is diverticulosis of the colon with no eviden ce of diverticulitis. No free fluid or free air in the abdomen or pelvis. The bladder is adequately filled and normal in appearance. The uterus is surgically absent. There is a displaced fracture of the right pubic bone extending into the right superior and inferior pubic rami. There are degenerat daren changes in the spine. Impression: Displaced fracture of the right pubic bone extending into the right superior and inferior pubic rami. Colonic fecal stasis. Colonic diverticulosis without diverticulitis. Cholecystectomy. Hysterectomy. All CT scans are performed using dose optimization techniques as appropriate to the performed exam an d include at least one of the following: Automated exposure control, adjustment of the mA and/or kV according t o size, and the use of iterative reconstruction technique.
[2023-07-09] MEDS: NORCO 5-325 PO ONE (06:07)
[2023-07-09 08:36] LABS: SARS COV-2 RNA RAPID NAAT NEGATIVE (NEGATIVE)
[2023-07-09] MEDS: SUBLIMAZE IVP ONE (09:12)
[2023-07-09 09:43] VITALS: BMI 25.6
[2023-07-09] MEDS: MORPHINE 2 MG/ML SYRINGE IVP PRN (10:06)
[2023-07-09] MEDS: LOVENOX SUBCUT SCH (10:06)
--- NOTE | 2023-07-09 12:39 | PCM ---
Date of Service Date Seen by Provider: 07/09/23 Time Seen by Provider: 09:40 Admit Day/Time Admission Date: 07/09/23 Admission Time: 08:14 Reason for Admission Chief Complaint: ACUTE PAIN FROM FALL-CONSTIPATION Hospital Provider Hospital Provider: SONYA MELTON PA-C, [facility] [place] [facility] Primary Care Physician: LUCILLE SCHMITT History of Present Illness History of Present Illness: Patient is a 78 year old female from home who presents for fall and right hip pain. Patient states she was walking to the bathroom and tripped. She tried to catch herself on the sink but turn and fell into the floor. She was only in the floor briefly before able to call for help. She denies chest pain, dizziness prior to fall. She has chronic RLE weakness due to hx of polio. She has never had any hip surgeries in the past. She had a negative ct head in ER. CT abd/pelvis showed displaced right pubic bone extending into superior and inferior pubic rami. She was given pain medication and trialed ambulation. Pt had a difficult time ambulating. Therefore she was admitted. Pt states that she lives at home alone. Her daughter lives a few hours away but is coming down. She could potentially stay with her if needed. She states that at baseline due to her hx of polio sometimes her RLE weakness causes her to drag her right leg. She uses a cane. Case Discussed With Case Discussed With: Patient's case was discussed with the ER Physicians, Dr. Devine. [facility] Medical History Hypertension for years I10 - Essential (primary) hypertension (ICD-10) Hypothyroidism about a year or two E03.9 - Hypothyroidism, unspecified (ICD-10) Surgical History History of cataract surgery Z98.49 - Cataract extraction status, unspecified eye (ICD-10) Status post tonsillectomy 1947 Z90.89 - Acquired absence of other organs (ICD-10) Status post hysterectomy 2010 Z90.710 - Acquired absence of both cervix and uterus (ICD-10) Status post appendectomy 1961 Z90.49 - Acquired absence of other specified parts of digestive tract (ICD- 10) Family History Other No known health problems Social History Smoking and tobacco status: Never smoker Allergies Allergies Allergy/AdvReac Type Severity Reaction Status Date / Time No Known Allergies Allergy Verified 07/09/23 04:22 Current Medications Home Medications levothyroxine 50 mcg tablet (Synthroid) 50 mcg PO DAILY 10/13/15 [History Confirmed 07/09/23 Last Taken 09/15/18] acetaminophen 325 mg tablet (Pain Reliever (acetaminophen)) 650 mg PO BEDTIME PRN pain 07/09/23 [History Confirmed 07/09/23 Last Taken Unknown] furosemide 20 mg tablet (Lasix) 20 mg PO QDAC2 07/09/23 [History Confirmed 07/09/23 Last Taken Unknown] hydrocodone 5 mg-acetaminophen 325 mg tablet 1 tab PO BID #12 tabs 07/09/23 [Rx Last Taken Unknown] naloxone 4 mg/actuation nasal spray (Narcan) 4 mg intranasal Q2M #2 ea 07/09/23 [Rx Last Taken Unknown] polyethylene glycol 3350 17 gram/dose oral powder (Miralax) 17 g PO DAILY #238 grams 07/09/23 [Rx Last Taken Unknown] valsartan 160 mg tablet (Diovan) 160 mg PO DAILY 07/09/23 [History Confirmed 07/09/23 Last Taken Unknown] Home Acetaminophen (Acetaminophen 325 Mg Tablet) 650 mg PO Q4H PRN PRN Reason: Mild Pain Hydrocodone Bitart/Acetaminophen (Hydrocodone Bit/Acetaminophen 7.5/325 Mg Tablet) 1 tab PO Q6HR PRN PRN Reason: MODERATE PAIN Enoxaparin Sodium (Enoxaparin Sodium 40 Mg/0.4 Ml Syr) 40 mg SUBCUT DAILY [facility] Last Admin: 07/09/23 10:06 Dose: 40 mg Furosemide (Furosemide 20 Mg Tablet) 20 mg PO QDAC2 [facility] Last Admin: 07/09/23 13:43 Dose: 20 mg Levothyroxine Sodium (Levothyroxine Sodium 50 Mcg Tablet) 50 mcg PO DAILY@0630 [facility] Last Admin: 07/09/23 13:43 Dose: 50 mcg Morphine Sulfate (Morphine Sulfate 2 Mg/Ml Syringe) 2 mg IVP Q6H PRN PRN Reason: MODERATE PAIN Last Admin: 07/09/23 10:06 Dose: 2 mg Valsartan (Valsartan 160 Mg Tablet) 160 mg PO DAILY [facility] Last Admin: 07/09/23 13:43 Dose: 160 mg Discontinued Medications Hydrocodone Bitart/Acetaminophen (Hydrocodone Bit/Acetaminophen 5/325 Mg Tablet) 1 tab PO ONCE ONE Stop: 07/09/23 06:00 Last Admin: 07/09/23 06:07 Dose: 1 tab Fentanyl Citrate (Fentanyl 50 Mcg/Ml Sdv) 50 mcg IVP ONCE ONE Stop: 07/09/23 07:55 Last Admin: 07/09/23 09:12 Dose: Not Given Opioid Naive vs. Tolerant Does Patient Take Opioids?: No Is Patient Opioid Naive?: Yes What is Opioid Naive?: *Opioid Naive implies the patient is not already taking opioids or not chronically receiving opioids on a daily basis. *PRN dosing is not "usually" associated with tolerance. *Patients are at higher risk of over-sedation and aspiration. Is Patient Opioid Tolerant?: No What is Opioid Tolerant?: *Opioid Tolerance implies less than the expected response to an opioid. *Acquired tolerance is defined by the patient taking 60mg of oral morphine daily (or equianalgesic dose of another opioid) for 1 week or more. *Often associated with chronic pain. *May take more than usual dose to achieve desired pain control. Review of Systems Constitutional: Reports Weakness; Denies Fatigue Head: Reports Normocephalic and Atraumatic Cardiovascular: Denies Chest pain, Chest Pressure or Edema Respiratory: Denies Cough or Shortness of air Gastrointestinal: Denies Nausea, Vomiting, Diarrhea, Abdominal pain or Melena Genitourinary: Denies Dysuria or Frequency Musculoskeletal: Reports Other (+right hip pain ) Dermatologic: Denies Rashes Neurological: Reports Other (+chronic weakness of RLE due to hx of polio ) Physical examination Most Recent Vital Signs: Most Recent Vital Signs Temperature 97.7 F 07/09/23 09:18 Temperature Source Oral 07/09/23 09:18 Temperature Source Infrared 07/09/23 04:11 Pulse Rate 89 07/09/23 09:18 Respiratory Rate 16 07/09/23 09:18 Blood Pressure 122/48 L 07/09/23 08:03 Blood Pressure Left Arm 175/71 07/09/23 09:18 Blood Pressure Position Supine 07/09/23 09:18 O2 Sat by Pulse Oximetry 96 07/09/23 09:18 Oxygen Delivery Method Room Air 07/09/23 10:00 Height 5 ft 4 in 07/09/23 09:18 Weight 149 lb 5 oz 07/09/23 09:18 Appearance: Positive No Apparent Distress and Alert and Oriented x3 Skin: Positive [place], Warm and Good Turgor; Negative Rashes HEENT: Positive Normocephalic, Atraumatic and Oral Mucous Moist Neck: Positive Supple and Midline Trachea Chest/Lungs: Positive Clear to Auscultation Bilaterally; Negative Rales, Rhonci or Wheezes Heart: Positive RRR GI/: Positive Soft, Nontender, Bowel Sounds Normal and No Distention Extremities: Negative Edema Neurological: Positive Cranial Nerves Intact, Alert, Oriented and Other (+generalized weakness, worse with rle compared to left, this is normal for patient due to hx of polio. Has pain with flexion or rotation of right hip. Pulses and sensation intact. ) Psychiatric: Positive Oriented x4, Appropriate Mood and Appropriate Affect Labs This Visit Labs This Visit: Labs This Visit 07/09/23 08:16 SARS CoV-2 RNA Rapid AMADO Negative Imaging Imaging: EXAM: CT HEAD WITHOUT CONTRAST. HISTORY: Fall. PROCEDURE: Contiguous axial CT images of the head without contrast with coronal and sagittal reformats. FINDINGS: Comparison made with CT head of 07/30/2021. There is diffuse cerebral atrophy. The ventricles and basal cisterns are normal in size and configuration. No evidence of mass or midline shift. No intracranial hemorrhage or evidence of large vessel infarct. No extra-axial fluid collection. There are minimal chronic small vessel ischemic changes in the white matter. There is a mucous retention cyst in the right maxillary sinus. The mastoid air cells are normal in appearance. No skull fracture. Impression: No intracranial hemorrhage or skull fracture. Chronic small vessel ischemic changes. Diffuse cerebral atrophy. Right maxillary sinusitis. EXAM: CT OF THE ABDOMEN AND PELVIS WITHOUT CONTRAST. HISTORY: Fall. Right hip and pubic tenderness to palpation. PROCEDURE: Contiguous axial CT images of the abdomen and pelvis without contrast with coronal and sagittal reformats. All CT scans are performed using dose optimization techniques as appropriate to a performed exam including the following: Automated exposure control, Adjustment of the mA and/or kV according to patient size, Use of iterative reconstruction technique. FINDINGS: The liver is normal in appearance. The gallbladder is surgically absent. The pancreas, spleen, adrenal glands and kidneys are normal in appearance. The abdominal aorta is within normal limits in size. There is fecal stasis in the colon. There is diverticulosis of the colon with no evidence of diverticulitis. No free fluid or free air in the abdomen or pelvis. The bladder is adequately filled and normal in appearance. The uterus is surgically absent. There is a displaced fracture of the right pubic bone extending into the right superior and inferior pubic rami. There are degenerative changes in the spine. Impression: Displaced fracture of the right pubic bone extending into the right superior and inferior pubic rami. Colonic fecal stasis. Colonic diverticulosis without diverticulitis. Cholecystectomy. Hysterectomy. Review Statement Review Statement: I have independently reviewed and interpreted the labs/EKGs/imaging that were ordered by the ER provider. I have reviewed all outside records that are available currently in our EMR including imaging/notes/labs from previous visits. Plan Plan: 1. Displaced fracture of the right pubic bone extending into the right superior and inferior pubic rami - Pain control with tylenol, norco, or morphine. WBAT on RLE. PT/OT consult. 2. Hypertension - Cont home meds 3. Hypothyroidism - Cont home meds DVT Prophylaxis: Lovenox Time Spent: Greater than 80 minutes spent with patient, 50% of the time spent with this patient was devoted to counseling and coordination of care. [facility] minutes spent discussing advance care planning. FULL CODE Admit to: Obs Discussed Plan of Care with Dr. Natty Rodrigez. Medications Medication Orders: Medications Ordered Category Date Time Status Acetaminophen [Tylenol] Meds 07/09/23 08:31 Active 650 mg PO Q4H PRN Enoxaparin Sodium [Lovenox] Meds 07/09/23 09:00 Active 40 mg SUBCUT DAILY Furosemide [Lasix Tab] Meds 07/09/23 13:00 Ordered 20 mg PO QDAC2 Hydrocodone Bit/Acetaminophen [[place] 7.5-325] Meds 07/09/23 08:31 Active 1 tab PO Q6HR PRN Levothyroxine Sodium [Synthroid] Meds 07/09/23 13:00 Ordered 50 mcg PO DAILY Morphine Sulfate [Morphine 2 mg/ml Syringe] Meds 07/09/23 08:31 Active 2 mg IVP Q6H PRN Valsartan [Diovan] Meds 07/09/23 13:00 Ordered 160 mg PO DAILY
[2023-07-09] MEDS: SYNTHROID PO SCH (13:43)
[2023-07-09] MEDS: LASIX TAB PO SCH (13:43)
[2023-07-09] MEDS: DIOVAN PO SCH (13:43)
[2023-07-09] MEDS: NORCO 7.5-325 PO PRN (20:04)
[2023-07-10 05:50] LABS: BASOPHILS % (AUTO) 0.5 % (0.0-3.0); EOSINOPHILS # (AUTO) 0.2 K/ul (0.0-0.7); EOSINOPHILS % (AUTO) 2.1 % (0.0-7.0); HEMATOCRIT 34.9 % (37.0-47.0); HEMOGLOBIN 10.9 g/dl (12.0-16.0); IMMATURE GRANULOCYTE # (AUTO) 0.1 (0.0-1.0); IMMATURE GRANULOCYTE % (AUTO) 0.6 % (0.0-5.0); LYMPHOCYTES # (AUTO) 1.1 K/uL (0.60-3.4); LYMPHOCYTES % (AUTO) 12.2 (10.0-50.0); MEAN CORPUSCULAR HEMOGLOBIN 29.5 pg (27.0-31.0); MEAN CORPUSCULAR HGB CONC 31.2 (31.8-35.4); MEAN CORPUSCULAR VOLUME 94.6 fl (81.0-99.0); MONOCYTES # (AUTO) 0.6 K/uL (0.4-2.0); MONOCYTES % (AUTO) 6.5 (0-10); NEUTROPHILS # (AUTO) 6.7 K/ul (2.0-6.9); NEUTROPHILS % (AUTO) 78.1 % (42.2-75.2); PLATELET COUNT 131 10^3/uL (140-440); RED BLOOD COUNT 3.69 10^6/ul (4.20-5.40); WHITE BLOOD COUNT 8.59 K/ul (4.6-10.2)
[2023-07-10 05:59] LABS: ALANINE AMINOTRANSFERASE 23.8 U/L (0-35); ALBUMIN 3.67 g/dL (3.5-5.0); ALKALINE PHOSPHATASE 69.6 U/L (53-141); ASPARTATE AMINO TRANSFERASE 29.8 U/L (14-36); BILIRUBIN,TOTAL 1.13 mg/dL (0.2-1.3); BLOOD UREA NITROGEN 20.3 mg/dL (7-17); CALCIUM 8.22 mg/dL (8.4-10.2); CARBON DIOXIDE 27.7 mmol/L (22-30.0); CHLORIDE 97.2 mmol/L (98-107); CREATININE 0.92 mg/dL (0.60-1.30); GLUCOSE 103.2 mg/dL (74-106); POTASSIUM 3.63 mmol/L (3.5-5.1); SODIUM 130.2 mmol/L (134.5-145); TOTAL PROTEIN 6.42 g/dL (6.3-8.2)
--- NOTE | 2023-07-10 09:59 | PCM.PROG ---
Date/Time Seen Date Seen by Provider: 07/10/23 Time Seen by Provider: 08:40 Provider Provider: [facility] Chief Complaint Chief Complaint: ACUTE PAIN FROM FALL-CONSTIPATION Subjective Subjective: Patient states she's doing "ok" but having quite a bit of pain. She states the pain medications help. She has had difficulty getting to the C. She states her daughter may be able to stay for about a week with her. She's not sure how she would do at home in her current state. Objective Appearance: Positive No Apparent Distress and Alert and Oriented x3 Chest/Lungs: Positive Clear to Auscultation Bilaterally; Negative Rales, Rhonci or Wheezes Heart: Positive RRR GI/: Positive Soft, Nontender and Bowel Sounds Normal Neurological: Positive Cranial Nerves Intact, Alert, Oriented and Other (+generalized weakness, RLE weakness compared to LLE, acute on chronic. Pain with palpation in R groin area. ) Vital Signs Vital Signs: Vital Signs: Last 24 Hours 07/09/23 10:00 07/09/23 11:00 07/09/23 12:00 Temperature Temperature Source Pulse Rate Respiratory Rate Blood Pressure Blood Pressure Mean Blood Pressure Location Blood Pressure Position O2 Sat by Pulse Oximetry Oxygen Delivery Method Room Air Room Air Room Air 07/09/23 13:00 07/09/23 14:00 07/09/23 14:00 Temperature 99.6 F Temperature Source Temporal Artery Scan Pulse Rate 94 Respiratory Rate 17 Blood Pressure 157/67 H Blood Pressure Mean 97 Blood Pressure Location Right Arm Blood Pressure Position Supine O2 Sat by Pulse Oximetry 95 Oxygen Delivery Method Room Air Room Air Room Air 07/09/23 15:00 07/09/23 16:00 07/09/23 17:00 Temperature Temperature Source Pulse Rate Respiratory Rate Blood Pressure Blood Pressure Mean Blood Pressure Location Blood Pressure Position O2 Sat by Pulse Oximetry Oxygen Delivery Method Room Air Room Air Room Air 07/09/23 17:44 07/09/23 18:00 07/09/23 19:00 Temperature 100 F Temperature Source Temporal Artery Scan Pulse Rate 91 Respiratory Rate 14 Blood Pressure 129/66 Blood Pressure Mean 87 Blood Pressure Location Right Arm Blood Pressure Position Supine O2 Sat by Pulse Oximetry 95 Oxygen Delivery Method Room Air Room Air Room Air 07/09/23 19:59 07/09/23 20:00 07/09/23 21:00 Temperature Temperature Source Pulse Rate Respiratory Rate Blood Pressure Blood Pressure Mean Blood Pressure Location Blood Pressure Position O2 Sat by Pulse Oximetry Oxygen Delivery Method Room Air Room Air Room Air 07/09/23 21:28 07/09/23 22:00 07/09/23 23:00 Temperature 98.5 F Temperature Source Temporal Artery Scan Pulse Rate 89 Respiratory Rate 18 Blood Pressure 127/55 L Blood Pressure Mean 79 Blood Pressure Location Right Arm Blood Pressure Position Supine O2 Sat by Pulse Oximetry 95 Oxygen Delivery Method Room Air Room Air Room Air 07/10/23 00:00 07/10/23 01:00 07/10/23 02:00 Temperature Temperature Source Pulse Rate Respiratory Rate Blood Pressure Blood Pressure Mean Blood Pressure Location Blood Pressure Position O2 Sat by Pulse Oximetry Oxygen Delivery Method Room Air Room Air Room Air 07/10/23 03:00 07/10/23 04:00 07/10/23 05:00 Temperature Temperature Source Pulse Rate Respiratory Rate Blood Pressure Blood Pressure Mean Blood Pressure Location Blood Pressure Position O2 Sat by Pulse Oximetry Oxygen Delivery Method Room Air Room Air Room Air 07/10/23 05:21 07/10/23 06:00 07/10/23 07:00 Temperature 99.7 F Temperature Source Temporal Artery Scan Pulse Rate 88 Respiratory Rate 18 Blood Pressure 137/61 Blood Pressure Mean 86 Blood Pressure Location Right Arm Blood Pressure Position Supine O2 Sat by Pulse Oximetry 90 L Oxygen Delivery Method Room Air Room Air Room Air 07/10/23 07:00 07/10/23 07:25 07/10/23 08:32 Temperature Temperature Source Pulse Rate Respiratory Rate Blood Pressure Blood Pressure Mean Blood Pressure Location Blood Pressure Position O2 Sat by Pulse Oximetry Oxygen Delivery Method Room Air Room Air Room Air 07/10/23 09:50 07/10/23 09:51 Temperature 97.6 F Temperature Source Tympanic Pulse Rate 84 Respiratory Rate 18 Blood Pressure 112/53 L Blood Pressure Mean 72 Blood Pressure Location Left Arm Blood Pressure Position Sitting O2 Sat by Pulse Oximetry 90 L Oxygen Delivery Method Room Air Room Air Lab Results Lab Results: Lab Results: Last 24 Hours 07/10/23 05:24 WBC 8.59 RBC 3.69 L Hgb 10.9 L Hct 34.9 L MCV 94.6 MCH 29.5 MCHC 31.2 L RDW Coeff of Bucky 15.0 H Plt Count 131 L Immature Gran % (Auto) 0.6 Neut % (Auto) 78.1 H Lymph % (Auto) 12.2 [place] % (Auto) 6.5 Eos % (Auto) 2.1 Baso % (Auto) 0.5 Neut # (Auto) 6.7 Lymph # (Auto) 1.1 [place] # (Auto) 0.6 Eos # (Auto) 0.2 Baso # (Auto) 0.0 Immature Gran # (Auto) 0.1 Sodium 130.2 L Potassium 3.63 Chloride 97.2 L Carbon Dioxide 27.7 Anion Gap 8.93 BUN 20.3 H Creatinine 0.92 Estimated GFR (MDRD) 59.00 BUN/Creatinine Ratio 22.06 Glucose 103.2 Calcium 8.22 L Total Bilirubin 1.13 AST 29.8 ALT 23.8 Alkaline Phosphatase 69.6 Total Protein 6.42 Albumin 3.67 Globulin 2.75 Albumin/Globulin Ratio 1.33 Additional Comments Additional Comments: I have independently reviewed and interpreted the labs/EKGs/imaging ordered during this hospital stay. I have reviewed outside records that are available in our EMR that pertain to medical stay including imaging/notes/labs from previous visits. Active Medications Active Medications: Medications Generic Name Dose Route Start Last Admin Trade Name Freq PRN Reason Stop Dose Admin Acetaminophen 650 mg 07/09/23 08:31 Acetaminophen 325 Mg Tablet PO Q4H PRN Mild Pain Hydrocodone Bitart/Acetaminophen 1 tab 07/09/23 08:31 07/10/23 04:29 Hydrocodone Bit/Acetaminophen 7.5/325 Mg Tablet PO 1 tab Q6HR PRN Administration MODERATE PAIN Enoxaparin Sodium 40 mg 07/09/23 09:00 07/10/23 08:45 Enoxaparin Sodium 40 Mg/0.4 Ml Syr SUBCUT 40 mg DAILY RAJANI Administration Furosemide 20 mg 07/09/23 13:00 07/10/23 05:53 Furosemide 20 Mg Tablet PO 20 mg QDAC2 RAJANI Administration Levothyroxine Sodium 50 mcg 07/09/23 13:00 07/10/23 05:53 Levothyroxine Sodium 50 Mcg Tablet PO 50 mcg DAILY@0630 RAJ[facility] Administration Morphine Sulfate 2 mg 07/09/23 08:31 07/09/23 18:06 Morphine Sulfate 2 Mg/Ml Syringe IVP 2 mg Q6H PRN Administration MODERATE PAIN Valsartan 160 mg 07/09/23 13:00 07/10/23 08:45 Valsartan 160 Mg Tablet PO 160 mg DAILY [facility] Administration Plan Plan: 1. Displaced fracture of the right pubic bone extending into the right superior and inferior pubic rami - Pain control with tylenol, norco, or morphine. WBAT on RLE. PT/OT consult. 2. Hypertension - Cont home meds 3. Hypothyroidism - Cont home meds DVT Prophylaxis: Lovenox Dispo: Made inpatient today. Patient is not safe for discharge today due to pain and weakness of RLE. Major fall risk especially with her history of polio. Review Statement Review Statement: I have personally discussed and reviewed the patient's visit/currently labs/imaging/decision making with Dr. Rodrigez, my supervising attending. Greater that 50 minutes spent with patient, 50% of the time spent with this patient was devoted to counseling and coordination of care.
[2023-07-11 05:28] LABS: BASOPHILS % (AUTO) 0.5 % (0.0-3.0); EOSINOPHILS # (AUTO) 0.1 K/ul (0.0-0.7); EOSINOPHILS % (AUTO) 1.3 % (0.0-7.0); HEMATOCRIT 32.6 % (37.0-47.0); HEMOGLOBIN 10.4 g/dl (12.0-16.0); IMMATURE GRANULOCYTE # (AUTO) 0.1 (0.0-1.0); IMMATURE GRANULOCYTE % (AUTO) 0.6 % (0.0-5.0); LYMPHOCYTES # (AUTO) 0.7 K/uL (0.60-3.4); LYMPHOCYTES % (AUTO) 8.5 (10.0-50.0); MEAN CORPUSCULAR HEMOGLOBIN 29.5 pg (27.0-31.0); MEAN CORPUSCULAR HGB CONC 31.9 (31.8-35.4); MEAN CORPUSCULAR VOLUME 92.4 fl (81.0-99.0); MONOCYTES # (AUTO) 0.7 K/uL (0.4-2.0); MONOCYTES % (AUTO) 8.1 (0-10); NEUTROPHILS # (AUTO) 6.9 K/ul (2.0-6.9); PLATELET COUNT 123 10^3/uL (140-440); RDW COEFFICIENT OF VARIATION 14.5 % (11.6-14.8); RED BLOOD COUNT 3.53 10^6/ul (4.20-5.40); WHITE BLOOD COUNT 8.56 K/ul (4.6-10.2)
[2023-07-11 05:42] LABS: ALANINE AMINOTRANSFERASE 18.3 U/L (0-35); ALBUMIN 3.47 g/dL (3.5-5.0); ALKALINE PHOSPHATASE 69.9 U/L (53-141); ASPARTATE AMINO TRANSFERASE 23.9 U/L (14-36); BLOOD UREA NITROGEN 17.5 mg/dL (7-17); CALCIUM 8.17 mg/dL (8.4-10.2); CARBON DIOXIDE 28.5 mmol/L (22-30.0); CREATININE 0.82 mg/dL (0.60-1.30); GLUCOSE 115.8 mg/dL (74-106); POTASSIUM 4.02 mmol/L (3.5-5.1); SODIUM 130.8 mmol/L (134.5-145); TOTAL PROTEIN 6.12 g/dL (6.3-8.2)
[2023-07-11 05:44] LABS: CHLORIDE 98.4 mmol/L (98-107)
[2023-07-11 06:16] LABS: BILIRUBIN,TOTAL 0.71 mg/dL (0.2-1.3)
--- NOTE | 2023-07-11 09:21 | PCM.PROG ---
Date/Time Seen Date Seen by Provider: 07/11/23 Time Seen by Provider: 09:00 Provider Provider: LAKESHIA FOWLER, [facility] Chief Complaint Chief Complaint: ACUTE PAIN FROM FALL-CONSTIPATION Subjective Subjective: Feels some better today, but is still weak. Has no one at home to help her at this time. Discussed options of home health vs swingbed. She declines swingbed and would like to go home. Objective Appearance: Positive No Apparent Distress and Alert and Oriented x3 Chest/Lungs: Positive Symmetrical With Equal Breath Sounds, Clear to Auscultation Bilaterally and Good Air Movement all 4 Lung Gayle Heart: Positive RRR and Pulses Normal GI/: Positive Soft, Nontender, Bowel Sounds Normal and No Distention Musculoskeletal: Positive Other (trace edema) Neurological: Positive Sensation Intact, Motor intact, Reflexes Intact, Alert, Oriented and Other (generalized weakness) Vital Signs Vital Signs: Vital Signs: Last 24 Hours 07/10/23 09:50 07/10/23 09:51 07/10/23 11:00 Temperature 97.6 F Temperature Source Tympanic Pulse Rate 84 Respiratory Rate 18 Blood Pressure 112/53 L Blood Pressure Mean 72 Blood Pressure Location Left Arm Blood Pressure Position Sitting O2 Sat by Pulse Oximetry 90 L Oxygen Delivery Method Room Air Room Air Room Air Telemetry Type Telemetry Monitoring Telemetry Heart Rate EKG VA Interval EKG QRS Interval Telemetry Strip Reading 07/10/23 12:00 07/10/23 12:50 07/10/23 13:22 Temperature 98.2 F Temperature Source Tympanic Pulse Rate 85 Respiratory Rate 18 Blood Pressure 115/58 L Blood Pressure Mean 77 Blood Pressure Location Left Arm Blood Pressure Position Sitting O2 Sat by Pulse Oximetry 95 Oxygen Delivery Method Room Air Room Air Room Air Telemetry Type Telemetry Monitoring Telemetry Heart Rate EKG VA Interval EKG QRS Interval Telemetry Strip Reading 07/10/23 13:55 07/10/23 14:58 07/10/23 16:00 Temperature Temperature Source Pulse Rate Respiratory Rate Blood Pressure Blood Pressure Mean Blood Pressure Location Blood Pressure Position O2 Sat by Pulse Oximetry Oxygen Delivery Method Room Air Room Air Room Air Telemetry Type Telemetry Monitoring Telemetry Heart Rate EKG VA Interval EKG QRS Interval Telemetry Strip Reading 07/10/23 16:43 07/10/23 17:12 07/10/23 17:20 Temperature 98.7 F Temperature Source Tympanic Pulse Rate 92 Respiratory Rate 18 Blood Pressure 150/71 H Blood Pressure Mean 97 Blood Pressure Location Left Arm Blood Pressure Position Sitting O2 Sat by Pulse Oximetry 93 L Oxygen Delivery Method Room Air Room Air Room Air Telemetry Type Telemetry Monitoring Telemetry Heart Rate EKG VA Interval EKG QRS Interval Telemetry Strip Reading 07/10/23 19:00 07/10/23 19:00 07/10/23 20:00 Temperature Temperature Source Pulse Rate Respiratory Rate Blood Pressure Blood Pressure Mean Blood Pressure Location Blood Pressure Position O2 Sat by Pulse Oximetry Oxygen Delivery Method Room Air Room Air Telemetry Type Remote Telemetry Telemetry Monitoring Started Telemetry Heart Rate 80 EKG VA Interval 0.12 EKG QRS Interval 0.06 Telemetry Strip Reading NSR 07/10/23 20:00 07/10/23 21:00 07/10/23 21:07 Temperature 98.8 F Temperature Source Temporal Artery Scan Pulse Rate 87 Respiratory Rate 16 Blood Pressure 144/64 H Blood Pressure Mean 90 Blood Pressure Location Right Arm Blood Pressure Position Supine O2 Sat by Pulse Oximetry 94 L Oxygen Delivery Method Room Air Room Air Room Air Telemetry Type Telemetry Monitoring Telemetry Heart Rate EKG VA Interval EKG QRS Interval Telemetry Strip Reading 07/10/23 22:00 07/10/23 23:00 07/11/23 00:00 Temperature Temperature Source Pulse Rate Respiratory Rate Blood Pressure Blood Pressure Mean Blood Pressure Location Blood Pressure Position O2 Sat by Pulse Oximetry Oxygen Delivery Method Room Air Room Air Room Air Telemetry Type Telemetry Monitoring Telemetry Heart Rate EKG VA Interval EKG QRS Interval Telemetry Strip Reading 07/11/23 00:44 07/11/23 01:00 07/11/23 02:00 Temperature 99.7 F Temperature Source Temporal Artery Scan Pulse Rate 112 H Respiratory Rate 16 Blood Pressure 154/79 H Blood Pressure Mean 104 Blood Pressure Location Right Arm Blood Pressure Position Supine O2 Sat by Pulse Oximetry 91 L Oxygen Delivery Method Room Air Room Air Telemetry Type Bedside Monitor Telemetry Monitoring Continues Telemetry Heart Rate 98 EKG VA Interval 0.12 EKG QRS Interval 0.08 Telemetry Strip Reading SR W/ PVCS 07/11/23 05:18 07/11/23 07:00 Temperature 99 F Temperature Source Temporal Artery Scan Pulse Rate 105 H Respiratory Rate 15 Blood Pressure 153/72 H Blood Pressure Mean 99 Blood Pressure Location Left Arm Blood Pressure Position Supine O2 Sat by Pulse Oximetry 91 L Oxygen Delivery Method Room Air Telemetry Type Bedside Monitor Telemetry Monitoring Continues Telemetry Heart Rate 107 H EKG VA Interval 0.18 EKG QRS Interval 0.[address] Lab Results Lab Results: Lab Results: Last 24 Hours 07/11/23 05:13 WBC 8.56 RBC 3.53 L Hgb 10.4 L Hct 32.6 L MCV 92.4 MCH 29.5 MCHC 31.9 RDW Coeff of Bucky 14.5 Plt Count 123 L Immature Gran % (Auto) 0.6 Neut % (Auto) 81.0 H Lymph % (Auto) 8.5 L Nicholas % (Auto) 8.1 Eos % (Auto) 1.3 Baso % (Auto) 0.5 Neut # (Auto) 6.9 Lymph # (Auto) 0.7 Nicholas # (Auto) 0.7 Eos # (Auto) 0.1 Baso # (Auto) 0.0 Immature Gran # (Auto) 0.1 Sodium 130.8 L Potassium 4.02 Chloride 98.4 Carbon Dioxide 28.5 Anion Gap 7.92 BUN 17.5 H Creatinine 0.82 Estimated GFR (MDRD) 67.00 BUN/Creatinine Ratio 21.34 Glucose 115.8 H Calcium 8.17 L Total Bilirubin 0.71 AST 23.9 ALT 18.3 Alkaline Phosphatase 69.9 Total Protein 6.12 L Albumin 3.47 L Globulin 2.65 Albumin/Globulin Ratio 1.30 Additional Comments Additional Comments: I have independently reviewed and interpreted the labs/EKGs/imaging ordered during this hospital stay. I have reviewed outside records that are available in our EMR that pertain to medical stay including imaging/notes/labs from previous visits. Active Medications Active Medications: Medications Generic Name Dose Route Start Last Admin Trade Name Freq PRN Reason Stop Dose Admin Acetaminophen 650 mg 07/09/23 08:31 Acetaminophen 325 Mg Tablet PO Q4H PRN Mild Pain Hydrocodone Bitart/Acetaminophen 1 tab 07/09/23 08:31 07/10/23 13:51 Hydrocodone Bit/Acetaminophen 7.5/325 Mg Tablet PO 1 tab Q6HR PRN Administration MODERATE PAIN Enoxaparin Sodium 40 mg 07/09/23 09:00 07/11/23 08:41 Enoxaparin Sodium 40 Mg/0.4 Ml Syr SUBCUT 40 mg DAILY RAJANI Administration Furosemide 20 mg 07/09/23 13:00 07/11/23 06:02 Furosemide 20 Mg Tablet PO 20 mg QDAC2 RAJANI Administration Levothyroxine Sodium 50 mcg 07/09/23 13:00 07/11/23 06:02 Levothyroxine Sodium 50 Mcg Tablet PO 50 mcg DAILY@0630 RAJANI Administration Morphine Sulfate 2 mg 07/09/23 08:31 07/09/23 18:06 Morphine Sulfate 2 Mg/Ml Syringe IVP 2 mg Q6H PRN Administration MODERATE PAIN Valsartan 160 mg 07/09/23 13:00 07/11/23 08:41 Valsartan 160 Mg Tablet PO 160 mg DAILY RAJANI Administration Plan Plan: 1. Displaced fracture of the right pubic bone extending into the right superior and inferior pubic rami - Pain control with tylenol, norco, or morphine. WBAT on RLE. PT/OT consult. 2. Hyponatremia, mild - likely contributing to weakness, starting on NS@100mL/hr 3. Hypertension - Cont home meds 4. Hypothyroidism - Cont home meds DVT Prophylaxis: Lovenox Patient is not safe for discharge today due to pain and weakness of RLE. Major fall risk especially with her history of polio. Has no help at home. Daughter is planning to come Tuesday or Tuesday. Requesting home health and needs walker upon discharge. Review Statement Review Statement: I have personally discussed and reviewed the patient's visit/currently labs/imaging/decision making with Dr. Rodrigez, my supervising attending. Greater that 50 minutes spent with patient, 50% of the time spent with this patient was devoted to counseling and coordination of care.
[2023-07-11] MEDS: SODIUM CHLORIDE 1,000 ML IV SCH (09:50)
[2023-07-11] MEDS: TYLENOL PO PRN (10:29)
--- NOTE | 2023-07-11 13:32 | RS.OTINEVL ---
Subjective Patient information Date of Evaluation: 07/11/23 Date of Arrival on Unit: 07/09/23 Admitted From:: Emergency Dept Diagnosis: Acute pain with fall, constipation PRECAUTIONS: fall risk Usual Living Arrangement: Alone Living Arrangement Comments: LIVES ALONE Home Environment: House, Stairs (few) and No rail Medical History: Hypertension, Arthritis (left knee, left hip, wrists, and right 3rd finger) and Cancer (uterine cancer ) Medical History Comments:: polio Surgical History: Cholecystectomy, Tonsillectomy and Hysterectomy Surgical History Comments:: appendectomy Medications: Refer to chart Subjective Information/ Patient Comments:: "My daughter will come to my house when I am able to go home." 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 Current Level of Function: Independent Current Equipment Used at Home: CANE, 'S OLD WHEELCHAIR AND WALKER Pain Assessment Pain Pain Score: 9 Side: right Pain Location Body Site: Hip Pain Aggravating Factors: ADL's, Changing Position, Standing and Walking Pain Alleviating Factors: Medication Interventions Objective Patient Orientation: Person, Place, Time and Situation Observation: Pt is able to use the RW and keep the weight off of the RLE. 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 Sensation Right Upper Extremity: Intact/Normal Left Upper Extremity: Intact/Normal Balance Sitting Balance Static Sitting Balance: Good Dynamic Sitting Balance: Good Standing Balance Static Standing Balance: Fair Dynamic Standing Balance: Fair ADL Skills Self Feeding Self Feeding: Independent Grooming Grooming: Min Assist Grooming Set-up: Sitting Bathing Bathing UE: Independent and Set Up Only Bathing LE: Min Assist Bathing Set-up: Shower Dressing Dressing UE: Independent Dressing LE: Min Assist Toilet Management Toilet Hygiene: CGA Toilet Clothing Management: CGA Functional Mobility Bed Mobility Rolling R/L: Min Assist and 1 person assist Scooting: Min Assist and 1 person assist Supine to Sit: Min Assist and 1 person assist Transfers Sit to Stand: Min Assist and 1 person assist Stand to Sit: Min Assist Stand Pivot Transfers: Min Assist Ambulation Weight Bearing Status: WBAT Assistive Device Used: Rolling Walker Assistance needed with Ambulation: Min Assist Safety Awareness Safety Awareness: Good [place] INDEX SCORE: . Additional Treatment Performed Time with patient Length of Evaluation: 19 Total treatment time: 20 Activities Do you enjoy playing games?: Yes Would you be interested in leaving your room for activities?: Yes Would you enjoy group activities?: Yes Do you have difficulty with your vision?: Yes Patient Interests:: Watching Television and Visiting/Socializing Patient Education Patient Education: Education of diagnosis, Home Exercise Program and Education of Plan of Care Teaching Recipient: Patient Teaching Methods: Discussion and Demonstration Assessment Problem List:: Decreased level of function, Requires training/education, Decreased safety/Risk of falls and Pain limits previous level of function Rehab Potential: Good Further Therapy Indicated?: Yes Candidate for Swing Bed for Therapy Services?: yes Evaluation Complexity: HISTORY: Medium, EXAM OF BODY SYSTEMS: Medium and CLINICAL DECISION MAKING: Medium Patient's Goal(s): Pt wants to be (I) again and return home with her daughter there. Short Term Goals Goals GOAL 1: Pt to increase toilet transfers to SUP. Goal to be met by: 07/14/23 GOAL 2: Pt to increase brushing teeth at sink with SBA. Goal to be met by: 07/14/23 GOAL 3: Pt to increase BUE strength to 4+/5. Goal to be met by: 07/14/23 GOAL 4: Pt to be I with LE dressing. Goal to be met by: 07/14/23 Sterilizer Operator Goals GOAL 1: Pt to be Mod-I with ADLs. Goal to be met by: 07/18/23 GOAL 2: Pt to be Mod-I with LB dressing. Goal to be met by: 07/18/23 GOAL 3: To increase BUE strength to 5/5. Goal to be met by: 07/18/23 Plan Plan of Care: Therapeutic EX, Therapeutic Activity and Self-Care/Home Management Frequency of Treatment: 1-2 X day, as tolerated Duration of Treatment: 1 Week Anticipated Discharge Destination: Home Treatment Diagnosis (ICD 10 Codes): Weakness R53.1, Z74.1 Need for assistance with personal care. Has the Physician been added for Co-signature?: Yes
--- NOTE | 2023-07-11 14:02 | RS.PTINEVL ---
Subjective Patient information Date of Evaluation: 07/11/23 Date of Arrival on Unit: 07/09/23 Admitted From:: Emergency Dept Diagnosis: s/p fall, R superior/inferior pubic rami fx, difficulty walking Usual Living Arrangement: Alone Living Arrangement Comments: LIVES ALONE Home Environment: House, Stairs (few) (2 steps ) and No rail Medical History: Hypertension, Arthritis (left knee, left hip, wrists, and right 3rd finger) and Cancer (uterine cancer ) Medical History Comments:: polio LATEX ALLERGY?: No Surgical History: Cholecystectomy, Tonsillectomy and Hysterectomy Surgical History Comments:: appendectomy Medications: see chart Subjective Information/ Patient Comments:: pt states that she fell Tuesday morning. pt states she is not sure why she fell her RLE just wouldn't work. 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, Drive and Participated in Social Activities Outside home Abilities prior to this admission: pt amb occasionally using cane Current Level of Function: Partially Dependent Current Equipment Used at Home: CANE, Pain Assessement Location R pelvis: Description: Sharp Intensity: 9 Pain Behavior: Guarding and Facial Grimacing Pain Aggravating Factors: Changing Position, Standing and Walking Pain Alleviating Factors: Medication Interventions Objective Patient Orientation: Person, Place, Time and Situation Current Interventions: IV's and Telemetry Observation: RLE shorter than LLE (due to polio) Range of Motion ROM Right Upper Extremity AROM: WFL's Left Upper Extremity AROM: WFL's Right Lower Extremity AROM: WFL's (w pain with R hip ROM) Left Lower Extremity AROM: WFL's Muscle Strength Muscle Strength Right Upper Extremity: Mild Weakness (grossly 4/5 ) Left Upper Extremity: Mild Weakness (grossly 4/5 ) Right Lower Extremity: Mild Weakness (hip flex 3+/5, knee flex/ext 4/5 ankle DF/PF 4/5 ) Left Lower Extremity: Mild Weakness (hip flex 4+/5, knee flex/ext 4+/5, ankle DF/PF 4+/5) Sensation Sensation Right Upper Extremity: Intact/Normal Left Upper Extremity: Intact/Normal Right Lower Extremity: Intact/Normal Left Lower Extremity: Intact/Normal Palpation Palpation Findings: Tenderness (R pelvis) Balance Sitting Balance and Reactions Static Sitting Balance: Good Dynamic Sitting Balance: Fair (fair+) Standing Balance and Reactions Static Standing Balance: Poor Dynamic Standing Balance: Poor Standing Equilibrium Reactions: Delayed Left and Delayed Right Standing Protective Reactions: Delayed Left and Delayed Right Functional Mobility Bed Mobility Rolling R/L: Min Assist and 1 person assist Supine to Sit: Min Assist and 1 person assist Transfers Sit to Stand: Min Assist and 1 person assist Stand to Sit: Min Assist and 1 person assist Safety Awareness Safety Awareness: Good [place] INDEX SCORE: n/a Ambulation Ambulation Weight Bearing Status: WBAT Assistive Device Used: Rolling Walker Orthotic/Prosthetic Device: No Distance: 35ft Assistance needed with Ambulation: Min Assist and 1 person assist Gait Deviations: Step-to gait, Forward posture and Short stride Ambulation Comments: decreased stance time on R, unable to tolerate Full weight bearing RLE Factors Affecting Ambulation: Decreased Balance, Pain, Weakness, Decreased Safety and Limited Endurance Treatment time Units charged Gait trainin Time with patient Length of Evaluation: 19 Total treatment time: 32 Patient Education Education Patient Education: Activity Modification and Education of Plan of Care Teaching Recipient: Patient Teaching Methods: Discussion Assessment Assessment Problem List:: Decreased level of function, Requires training/education, Decreased safety/Risk of falls, Weakness and Pain limits previous level of function Rehab Potential: Good Further Therapy Indicated?: Yes Candidate for Swing Bed for Therapy Services?: pt plans to dc home Evaluation Complexity: HISTORY: Medium, EXAM OF BODY SYSTEMS: Medium, CLINICAL PRESENTATION: Medium and CLINICAL DECISION MAKING: Medium Patient's Goal(s): D/C home as independent as possible Short Term Goals GOAL #1: pt demonstrate rolling and scooting in bed independently. Goal to be met by: 07/13/23 GOAL #2: Transfer sup to/from sit CGA Goal to be met by: 07/13/23 GOAL #3: Transfer sit to/from stand CGA Goal to be met by: 07/13/23 GOAL #4: pt amb with rwx 100ft WBAT RLE with CGA x 1 Goal to be met by: 07/13/23 GOAL #5: Improve strength RLE 4- to 4/5 Goal to be met by: 07/13/23 Detention Goals GOAL #1: Transfe sup to/from sit to/from stand SBA Goal to be met by: 07/15/23 GOAL #2: pt amb functional household distances with rwx SBA x 1 Goal to be met by: 07/15/23 GOAL #3: Ascend/Descend 2 steps without HR CGA Goal to be met by: 07/15/23 Plan Plan of Care: Therapeutic EX and Therapeutic Activity Other:: gait training Frequency of Treatment: 1-2 X day, as tolerated Duration of Treatment: 5 days Anticipated Discharge Destination: Home Treatment Diagnosis (ICD 10 Codes): fx R pubic rami impaired balance R 26.81 pain R pelvis difficulty walking R 26.2 weakness M62.81 Has the Physician been added for Co-signature?: Yes
[2023-07-11] MEDS: SODIUM CHLORIDE PO SCH (14:40)
--- NOTE | 2023-07-12 09:04 | PCM.PROG ---
Date/Time Seen Date Seen by Provider: 07/12/23 Time Seen by Provider: 08:10 Provider [facility] Chief Complaint Chief Complaint: ACUTE PAIN FROM FALL-CONSTIPATION Subjective Subjective: States pain is still present. Interested in taking muscle relaxer instead of pain medication due to fear of becoming addicted. Discussed with her the need for her pain medication to assist her for when she is doing PT/OT. Would like to be admitted to [facility] if able. Objective Appearance: Positive No Apparent Distress and Alert and Oriented x3 Chest/Lungs: Positive Symmetrical With Equal Breath Sounds, Clear to Auscultation Bilaterally and Good Air Movement all 4 Lung Gayle Heart: Positive RRR and Pulses Normal GI/: Positive Soft, Nontender, Bowel Sounds Normal and No Distention Musculoskeletal: Positive Other (+1-2 pitting edema BLE) Neurological: Positive Sensation Intact, Motor intact, Reflexes Intact, Alert, Oriented and Other (generalized weakness) Vital Signs Vital Signs: Vital Signs: Last 24 Hours 07/11/23 10:00 07/11/23 13:00 07/11/23 14:00 Temperature 98.0 F 97.6 F Temperature Source Oral Oral Pulse Rate 88 87 Respiratory Rate 12 12 Blood Pressure 126/57 L 150/73 H Blood Pressure Mean 80 98 Blood Pressure Location Left Arm Left Arm Blood Pressure Position Supine Supine O2 Sat by Pulse Oximetry 95 93 L Oxygen Delivery Method Room Air Room Air Telemetry Type Remote Telemetry Telemetry Monitoring Continues Telemetry Heart Rate 103 H EKG NV Interval 0.15 EKG QRS Interval 0.[address] 07/11/23 18:00 07/11/23 19:00 07/11/23 20:00 Temperature 98.7 F Temperature Source Temporal Artery Scan Pulse Rate 87 Respiratory Rate 14 Blood Pressure 162/78 H Blood Pressure Mean 106 Blood Pressure Location Left Arm Blood Pressure Position Supine O2 Sat by Pulse Oximetry 97 Oxygen Delivery Method Room Air Room Air Telemetry Type Bedside Monitor Telemetry Monitoring Continues Telemetry Heart Rate 86 EKG NV Interval 0.18 EKG QRS Interval 0.05 L Telemetry Strip Reading SR 07/11/23 21:50 07/12/23 01:00 07/12/23 02:00 Temperature 98.7 F 98.3 F Temperature Source Temporal Artery Scan Temporal Artery Scan Pulse Rate 89 88 Respiratory Rate 10 L 16 Blood Pressure 150/73 H 163/78 H Blood Pressure Mean 98 106 Blood Pressure Location Left Arm Left Arm Blood Pressure Position Supine Supine O2 Sat by Pulse Oximetry 97 98 Oxygen Delivery Method Room Air Room Air Telemetry Type Bedside Monitor Telemetry Monitoring Continues Telemetry Heart Rate EKG NV Interval 0.13 EKG QRS Interval 0.06 Telemetry Strip Reading SR 07/12/23 05:44 07/12/23 07:00 07/12/23 08:00 Temperature 98.2 F Temperature Source Temporal Artery Scan Pulse Rate 90 Respiratory Rate 17 16 Blood Pressure 115/80 Blood Pressure Mean 91 Blood Pressure Location Left Arm Blood Pressure Position Supine O2 Sat by Pulse Oximetry 94 L Oxygen Delivery Method Room Air Room Air Telemetry Type Bedside Monitor Telemetry Monitoring Continues Telemetry Heart Rate 75 EKG NV Interval 0.12 EKG QRS Interval 0.06 Telemetry Strip Reading NSR Additional Comments Additional Comments: I have independently reviewed and interpreted the labs/EKGs/imaging ordered during this hospital stay. I have reviewed outside records that are available in our EMR that pertain to medical stay including imaging/notes/labs from previous visits. Active Medications Active Medications: Medications Generic Name Dose Route Start Last Admin Trade Name Freq PRN Reason Stop Dose Admin Acetaminophen 650 mg 07/09/23 08:31 07/11/23 10:29 Acetaminophen 325 Mg Tablet PO 650 mg Q4H PRN Administration Mild Pain Hydrocodone Bitart/Acetaminophen 1 tab 07/09/23 08:31 07/11/23 20:24 Hydrocodone Bit/Acetaminophen 7.5/325 Mg Tablet PO 1 tab Q6HR PRN Administration MODERATE PAIN Enoxaparin Sodium 40 mg 07/09/23 09:00 07/12/23 08:11 Enoxaparin Sodium 40 Mg/0.4 Ml Syr SUBCUT 40 mg DAILY RAJANI Administration Furosemide 20 mg 07/09/23 13:00 07/12/23 06:04 Furosemide 20 Mg Tablet PO 20 mg QDAC2 RAJANI Administration Sodium Chloride 1,000 mls @ 100 mls/hr 07/11/23 09:30 07/12/23 06:03 Sodium Chloride IV 100 mls/hr .Q10H RAJANI Administration Levothyroxine Sodium 50 mcg 07/09/23 13:00 07/12/23 06:05 Levothyroxine Sodium 50 Mcg Tablet PO 50 mcg DAILY@0630 RAJANI Administration Morphine Sulfate 2 mg 07/09/23 08:31 07/09/23 18:06 Morphine Sulfate 2 Mg/Ml Syringe IVP 2 mg Q6H PRN Administration MODERATE PAIN Sodium Chloride 1 gm 07/11/23 15:00 07/12/23 08:11 Sodium Chloride 1 Gm Tablet PO 1 gm TID RAJANI Administration Valsartan 160 mg 07/09/23 13:00 07/12/23 08:11 Valsartan 160 Mg Tablet PO 160 mg DAILY RAJANI Administration Plan Plan: 1. Displaced fracture of the right pubic bone extending into the right superior and inferior pubic rami - Pain control with tylenol, norco, or morphine. Adding on flexeril to help with pain control. WBAT on RLE. PT/OT consult. 2. Hyponatremia, mild - likely contributing to weakness, improving, stopped fluids due to lower extremity edema, salt tabs 3. Hypertension - Cont home meds 4. Hypothyroidism - Cont home meds DVT Prophylaxis: Lovenox Dispo: admit to swingbed tomorrow Review Statement Review Statement: I have personally discussed and reviewed the patient's visit/currently labs/imaging/decision making with Dr. Rodrigez, my supervising attending. Greater that 50 minutes spent with patient, 50% of the time spent with this patient was devoted to counseling and coordination of care.
[2023-07-13 05:41] LABS: BASOPHILS # (AUTO) 0.1 K/uL (0-0.2); BASOPHILS % (AUTO) 0.9 % (0.0-3.0); EOSINOPHILS # (AUTO) 0.3 K/ul (0.0-0.7); EOSINOPHILS % (AUTO) 3.6 % (0.0-7.0); HEMATOCRIT 31.2 % (37.0-47.0); HEMOGLOBIN 10.1 g/dl (12.0-16.0); IMMATURE GRANULOCYTE # (AUTO) 0.1 (0.0-1.0); IMMATURE GRANULOCYTE % (AUTO) 0.8 % (0.0-5.0); LYMPHOCYTES # (AUTO) 1.5 K/uL (0.60-3.4); LYMPHOCYTES % (AUTO) 19.7 (10.0-50.0); MEAN CORPUSCULAR HEMOGLOBIN 30.3 pg (27.0-31.0); MEAN CORPUSCULAR HGB CONC 32.4 (31.8-35.4); MEAN CORPUSCULAR VOLUME 93.7 fl (81.0-99.0); MONOCYTES # (AUTO) 1.1 K/uL (0.4-2.0); MONOCYTES % (AUTO) 13.7 (0-10); NEUTROPHILS # (AUTO) 4.8 K/ul (2.0-6.9); NEUTROPHILS % (AUTO) 61.3 % (42.2-75.2); PLATELET COUNT 131 10^3/uL (140-440); RDW COEFFICIENT OF VARIATION 14.8 % (11.6-14.8); RED BLOOD COUNT 3.33 10^6/ul (4.20-5.40); WHITE BLOOD COUNT 7.82 K/ul (4.6-10.2)
[2023-07-13 06:00] LABS: ALANINE AMINOTRANSFERASE 16.8 U/L (0-35); ALBUMIN 3.27 g/dL (3.5-5.0); ALKALINE PHOSPHATASE 67.8 U/L (53-141); ASPARTATE AMINO TRANSFERASE 22.3 U/L (14-36); BILIRUBIN,TOTAL 0.62 mg/dL (0.2-1.3); BLOOD UREA NITROGEN 13.9 mg/dL (7-17); CALCIUM 8.39 mg/dL (8.4-10.2); CARBON DIOXIDE 27.4 mmol/L (22-30.0); CHLORIDE 105.7 mmol/L (98-107); CREATININE 0.87 mg/dL (0.60-1.30); GLUCOSE 97.4 mg/dL (74-106); POTASSIUM 3.66 mmol/L (3.5-5.1); SODIUM 135.6 mmol/L (134.5-145); TOTAL PROTEIN 5.84 g/dL (6.3-8.2)
[2023-07-13 10:20] VITALS: BP 155/75; PULSE 87; RESP 16; TEMP 99.3
--- NOTE | 2023-07-13 11:06 | DCSUM ---
Admission Date Admission Date: 07/09/23 Discharge Date Discharge Date: 07/13/23 Admission Diagnosis Admission Diagnosis: 1. Displaced fracture of the right pubic bone extending into the right superior and inferior pubic rami 2. Hypertension 3. Hypothyroidism Discharge Diagnosis Discharge Diagnosis: 1. Displaced fracture of the right pubic bone extending into the right superior and inferior pubic rami - Unchanged 2. Hyponatremia, mild - Resolved 3. Hypertension - Chronic, stable 4. Hypothyroidism - Chronic, stable Hospital Provider Hospital Provider: [place] [facility] [place] Primary Care Physician: LUCILLE SCHMITT Summary of History and Physical Summary of History and Physical: Patient is a 78 year old female from home who presents for fall and right hip pain. Patient states she was walking to the bathroom and tripped. She tried to catch herself on the sink but turn and fell into the floor. She was only in the floor briefly before able to call for help. She denies chest pain, dizziness prior to fall. She has chronic RLE weakness due to hx of polio. She has never had any hip surgeries in the past. She had a negative ct head in ER. CT abd/pelvis showed displaced right pubic bone extending into superior and inferior pubic rami. She was given pain medication and trialed ambulation. Pt had a difficult time ambulating. Therefore she was admitted. Pt states that she lives at home alone. Her daughter lives a few hours away but is coming down. She could potentially stay with her if needed. She states that at baseline due to her hx of polio sometimes her RLE weakness causes her to drag her right leg. She uses a cane. Hospital Course Subjective: During course of stay, patient has required morphine and norco for pain in addition to tylenol. Added flexeril on 05/11 due to continued pain. Patient has tolerated well. Sodium trended down during stay. Patient reports she does not drink enough water at home or much at all. Started on NS and salt tabs. Held diuretics. Sodium trended up. Has no home supports and was left with unsafe discharge. Plan to admit patient to [facility] for extended rehab services. Appearance: Pleasant, No Apparent Distress and Alert HEENT: MMM and Supple CVS: No Murmur and No Rubs Abdomen: Soft, Non-Tender and No Distention Respiratory: No Dyspnea Extremities: No Edema Vital Signs: Most Recent Vital Signs Temperature 99.3 F 07/13/23 10:00 Temperature Source Temporal Artery Scan 07/13/23 10:00 Temperature Source Infrared 07/09/23 04:11 Pulse Rate 87 07/13/23 10:00 Respiratory Rate 16 07/13/23 10:00 Blood Pressure 155/75 H 07/13/23 10:00 Blood Pressure Mean 101 07/13/23 10:00 Blood Pressure Left Arm 175/71 07/09/23 09:18 Blood Pressure Location Left Arm 07/13/23 10:00 Blood Pressure Position Supine 07/13/23 10:00 O2 Sat by Pulse Oximetry 98 07/13/23 10:00 Oxygen Delivery Method Room Air 07/13/23 10:00 Height 5 ft 4 in 07/09/23 09:18 Weight 149 lb 5 oz 07/09/23 09:18 Telemetry Type Bedside Monitor 07/13/23 07:00 Telemetry Monitoring Continues 07/13/23 07:00 Telemetry Heart Rate 81 07/13/23 07:00 EKG CO Interval 0.15 07/13/23 07:00 EKG QRS Interval 0.12 H 07/13/23 07:00 Telemetry Strip Reading SR WITH BBB 07/13/23 07:00 Lab Results Last 24 Hours: 07/13/23 05:26 WBC 7.82 RBC 3.33 L Hgb 10.1 L Hct 31.2 L MCV 93.7 MCH 30.3 MCHC 32.4 RDW Coeff of Bucky 14.8 Plt Count 131 L Immature Gran % (Auto) 0.8 Neut % (Auto) 61.3 Lymph % (Auto) 19.7 Smyth % (Auto) 13.7 H Eos % (Auto) 3.6 Baso % (Auto) 0.9 Neut # (Auto) 4.8 Lymph # (Auto) 1.5 Smyth # (Auto) 1.1 Eos # (Auto) 0.3 Baso # (Auto) 0.1 Immature Gran # (Auto) 0.1 Sodium 135.6 Potassium 3.66 Chloride 105.7 Carbon Dioxide 27.4 Anion Gap 6.16 BUN 13.9 Creatinine 0.87 Estimated GFR (MDRD) 63.00 BUN/Creatinine Ratio 15.97 Glucose 97.4 Calcium 8.39 L Total Bilirubin 0.62 AST 22.3 ALT 16.8 Alkaline Phosphatase 67.8 Total Protein 5.84 L Albumin 3.27 L Globulin 2.57 Albumin/Globulin Ratio 1.27 Discharge Instructions Discharge Planning: Discharge Planning > 40 minutes If patient is discharged with left ventricular systolic dysfunction: NA Discharged with a beta odilon? [] If no, why not? [] Discharged with an sadie/arb? [] If no, why not? [] DX: Displaced fracture of the right pubic bone extending into the right superior and inferior pubic rami ADMIT TO SWINGBED Discharge Medications: Medications at Discharge (Home Meds & RX) levothyroxine 50 mcg tablet (Synthroid) 50 mcg PO DAILY 10/13/15 acetaminophen 325 mg tablet (Pain Reliever (acetaminophen)) 650 mg PO BEDTIME PRN pain 07/09/23 furosemide 20 mg tablet (Lasix) 20 mg PO QDAC2 07/09/23 hydrocodone 5 mg-acetaminophen 325 mg tablet 1 tab PO BID #12 tabs 07/09/23 naloxone 4 mg/actuation nasal spray (Narcan) 4 mg intranasal Q2M #2 ea 07/09/23 polyethylene glycol 3350 17 gram/dose oral powder (Miralax) 17 g PO DAILY #238 grams 07/09/23 valsartan 160 mg tablet (Diovan) 160 mg PO DAILY 07/09/23 Discharge Plan Discharge Discharge Orders: Discharge Patient (ONCE); Ordered 07/13/23 Ordered By: KAILEE LOERA Instructions: Pelvic Fracture (ED) Prescriptions: New polyethylene glycol 3350 [Miralax] 17 gram/dose powder 17 g PO DAILY Qty: 238 0RF naloxone [Narcan] 4 mg/actuation spray,non-aerosol 4 mg intranasal Q2M Qty: 2 0RF Rx Instructions: spray 1 dose into ONE nostril; alternate nostrils w each dose until help arrives hydrocodone-acetaminophen 5-325 mg tablet 1 tab PO BID Qty: 12 0RF No Action levothyroxine [Synthroid] 50 MCG tablet 50 mcg PO DAILY furosemide [Lasix] 20 mg tablet 20 mg PO QDAC2 valsartan [Diovan] 160 mg tablet 160 mg PO DAILY acetaminophen [Pain Reliever (acetaminophen)] 325 mg tablet 650 mg PO BEDTIME PRN (Reason: pain) Did you review [place] [employer] for ALL controlled substances?: Yes Discussed opioids are addictive and Narcan is available by prescription or from pharmacy.: Yes Condition: Good Referrals: ANDER JONES [REFERRING] - LUCILLE SCHMITT MD [Primary Care Provider] -
== END 2023-07-13 11:20 | disposition swing bed (61) | DRG 92 ==
LOC: SCU 04:10 → ED 04:10 → SCU 09:28 → OBSVTOIN 07-10 09:53
PROVIDERS: ADMIT Hospitalist; ATTEND Nurse Practitioner Family
DX: R26.81 Unsteadiness on feet; M62.81 Muscle weakness (generalized); S32.511A Fracture of superior rim of right pubis, initial encounter for closed fracture; E03.9 Hypothyroidism, unspecified; E87.1 Hypo-osmolality and hyponatremia; K59.00 Constipation, unspecified; I10 Essential (primary) hypertension